=== PATIENT | female | born 1945 | race Caucasian/White ===

== ENCOUNTER 2017-11-14 14:30 | Outpatient (RCR) | payer MEDICARE, OTHER, SELFPAY ==
--- NOTE | 2017-11-07 15:57 | NT_ITS ---
NON TREATMENT NOTE; 11/07/17 Patient was a no show no call for today's scheduled appointment.
--- NOTE | 2017-11-14 15:53 | PTTR_ITS ---
DATE: 11/14/17 SUBJECTIVE: I am doing okay for the most part. OBJECTIVE: Manual therapy: ([id number]): Patient was placed in supine and mobilized with gentle long axis traction through the lower extremity for decompression. She was then stretched through the hamstrings and piriformis with active isolated stretching technique. From sidelying patient was mobilized through hip extension coordinated with knee flexion. Then the knee was placed in 45 degrees of flexion while IASTM was applied through the distal hamstrings, lateral thigh distally, for down regulation via long brush strokes. Patient was then mobilized through the LCL with soft feathering technique with cross grain approach and over the lateral retinaculum of the patellar femoral joint. Patient tolerated treatment well with mobilization occurring bilaterally. Direct treatment time: 40 minutes of direct patient care.
== END 2017-11-22 23:59 | disposition home or self-care (01) ==
LOC: PT 14:30
PROVIDERS: PCP Family Medicine; Referring Provider Nurse Practitioner; Visit Provider Nurse Practitioner
DX: Z47.1 Aftercare following joint replacement surgery (principal); Z96.653 Presence of artificial knee joint, bilateral
CPT/HCPCS: 97140

== ENCOUNTER 2018-02-27 02:44 | Outpatient (CLI) | payer MEDICARE, OTHER, SELFPAY ==
[2018-02-27 10:30] LABS: Cholesterol 231 mg/dL (50-200); HDL Cholesterol 46 mg/dL (40-60); LDL CHOLESTEROL 149 mg/dL (<100); Triglyceride 192 mg/dL (30-150)
== END 2018-02-27 03:04 ==
PROVIDERS: PCP Family Medicine; Visit Provider Family Medicine
DX: E78.5 Hyperlipidemia, unspecified (principal)
CPT/HCPCS: 80048; 80061; 83721

== ENCOUNTER → 2018-10-15 10:18 | Outpatient (BNVA) | payer MEDICARE, OTHER, SELFPAY | PROVIDERS: PCP Family Medicine; Referring Provider Family Medicine; Visit Provider Student in an Organized Health Care Education/Training Program | DX: G56.03 Carpal tunnel syndrome, bilateral upper limbs (principal); M25.541 Pain in joints of right hand; I10 Essential (primary) hypertension | CPT/HCPCS: 99203; 99214 ==

== ENCOUNTER 2018-10-22 01:01 | Outpatient (CLI) | payer MEDICARE, OTHER, SELFPAY ==
--- NOTE | 2018-10-22 10:49 | DI.US_ITS ---
SYMPTOMS/DIAGNOSIS: RIGHT GROIN PAIN, R22.2, PAIN WHILE MOVING/WHEN LIFTING LEG ULTRASOUND EXAMINATION OF THE RIGHT GROIN: There is no evidence of a mass. A 2.2 x 0.8 x 0.5 cm lymph node is identified. The examination is otherwise unremarkable.
== END 2018-10-22 01:21 ==
PROVIDERS: PCP Family Medicine; Visit Provider Internal Medicine
DX: R10.31 Right lower quadrant pain (principal); R59.0 Localized enlarged lymph nodes
CPT/HCPCS: 76882

== ENCOUNTER 2018-12-09 11:03 | Day surgery (SDC) | payer MEDICARE, OTHER, SELFPAY ==
--- NOTE | 2018-12-09 09:54 | W.PM.DSUDISC ---
Documented by User: Consuelo Ron 12/09/18 09:58 Discharge Plan Disposition Patient Disposition: HOME Condition: Good Discharge Details Reason For Visit: Right carpal tunnel syndrome Attending Provider: Bruce Casas Primary Care Provider: Malini Vieira Home Meds and New Rx's Prescriptions: New hydrocodone-acetaminophen 5-325 mg tablet 1 tab PO Q6H PRN (Reason: severe pain) Qty: 3 RF: 0 acetaminophen 500 mg tablet 500 mg PO Q6H PRN (Reason: pain) Qty: 60 RF: 0 Continued lovastatin 10 mg tablet 10 mg PO DAILY Qty: 90 RF: 4 lisinopril 10 mg tablet 10 mg PO DAILY Qty: 90 RF: 4 meloxicam 15 mg tablet 15 mg PO DAILY PRN (Reason: pain) Qty: 90 RF: 3 No Action acetaminophen [Acetaminophen Extra Strength] 500 mg Tablet 500 mg PO Q4H PRNRF: 0 Discharge Instructions Stand Alone Forms: Augusto Milligan Tunnel Release Referrals: Bruce Casas MD [ [facility] STAFF PHYSICIAN] - Activity:: Elevate Remove Dressings/Wound Care:: 72 hours Shower/Bathe:: 72 hours Diet:: As Tolerated Discharge Orders Discharge Orders: Discharge Order (Routine); Ordered 12/09/18 Ordered By: Consuelo Ron DS: Diagnosis Discharge Diagnosis (1) Right carpal tunnel syndrome: Status: Acute Documented by User: Bruce Casas MD 12/09/18 12:10 Discharge Plan Disposition Patient Disposition: HOME Condition: Good Discharge Details Reason For Visit: Right carpal tunnel syndrome Attending Provider: Bruce Casas Primary Care Provider: Malini Vieira Home Meds and New Rx's Prescriptions: New hydrocodone-acetaminophen 5-325 mg tablet 1 tab PO Q6H PRN (Reason: severe pain) Qty: 3 RF: 0 acetaminophen 500 mg tablet 500 mg PO Q6H PRN (Reason: pain) Qty: 60 RF: 0 Continued lovastatin 10 mg tablet 10 mg PO DAILY Qty: 90 RF: 4 lisinopril 10 mg tablet 10 mg PO DAILY Qty: 90 RF: 4 meloxicam 15 mg tablet 15 mg PO DAILY PRN (Reason: pain) Qty: 90 RF: 3 No Action acetaminophen [Acetaminophen Extra Strength] 500 mg Tablet 500 mg PO Q4H PRNRF: 0 Discharge Instructions Stand Alone Forms: Augusto Milligan Tunnel Release Referrals: Bruce Casas MD [ [facility] STAFF PHYSICIAN] - Activity:: Elevate Remove Dressings/Wound Care:: 72 hours Shower/Bathe:: 72 hours Diet:: As Tolerated Discharge Orders Discharge Orders: Discharge Order (Routine); Ordered 12/09/18 Ordered By: Consuelo Ron
[2018-12-09 11:20] VITALS: BP 153/87; PULSE 85; RESP 18; TEMP 36.7; O2SAT 98
[2018-12-09] MEDS: ceFAZolin 2 GM/50 ML BAG IVPB (12:05)
[2018-12-09] MEDS: Lactated Ringers 1,000 ML 80 ML IV (12:06)
[2018-12-09] MEDS: Sodium Bicarbonate 50 MEQ/50 ML VIAL (12:15)
[2018-12-09] MEDS: Lidocaine 1% Multi-Dose 50 ML VIAL (12:15)
[2018-12-09 13:00] VITALS: BP 135/80; PULSE 73; RESP 16; TEMP 36.6; O2SAT 95
[2018-12-09] MEDS: Acetaminophen 500 MG TAB PO (13:09)
[2018-12-09 13:55] VITALS: BP 106/62; PULSE 63; RESP 18; TEMP 36.5; O2SAT 96
[2018-12-09 14:10] VITALS: BP 117/64; PULSE 66; RESP 18; TEMP 36.5; O2SAT 96
[2018-12-09 14:55] VITALS: BP 117/69; PULSE 75; RESP 18; TEMP 36.5; O2SAT 97
[2018-12-09] MEDS: HYDROcodone 5/Acetaminophen 325 TAB PO (14:59)
[2018-12-09] MEDS: Meloxicam 15 MG TAB PO (14:59)
--- NOTE | 2018-12-09 17:14 | W.PM.OP ---
Date of service: 12/09/18 Time of Service: 14:14 Operative Note Operative Note DATE OF PROCEDURE: 12/09/18 PRE-OP DIAGNOSIS: Right carpal tunnel syndrome POST-OP DIAGNOSIS: same PROCEDURE: Right Endoscopic Carpal Tunnel Release SURGEON: Bruce Casas ANESTHESIA: GETRain ESTIMATED BLOOD LOSS: 0 PATHOLOGY: none sent TOURNIQUET TIME: 15 COMPLICATIONS: None Patient was transported to: same day Patient's condition: stable Indications: I have seen Kiah in clinic for symptoms of carpal tunnel syndrome. The numbness, tingling, and pain limited function. Clinical exam findings [with nerve conduction tests ]confirmed the diagnosis of carpal tunnel syndrome. Nonoperative measures such as bracing, time, activity modifications had been tried but disability and pain persisted. I discussed carpal tunnel release with the patient. I reviewed the risks of the procedure to include, but not limited to, bleeding, infection, pain, stiffness, incomplete release, damage to nerves or vessels, persistent numbness, recurrence. Despite these risks, the patient elected to proceed. Findings: There was tightened carpal tunnel. There was notable synovium throughout the carpal tunnel which made initial visualization difficult. This was released successfully with the endoscopic with increased space within the tunnel. The antebrachial fascia was released proximally freeing the median nerve at the wrist. Procedure Description: Kiah was greeted in the preoperative holding area where the correct side was identified and marked. The consent was reviewed with the patient and signed. The history and physical was updated. All questions were answered. Kiah was taken back to the operating room. The patient was placed into the supine position on the operating room table with the right arm on an arm board. A nonsterile tourniquet was placed high onto the arm. All bony prominences were well padded. Prophylactic antibiotics in the form of cefazolin were administered. The right arm was then prepped with Chloraprep and draped in a standard fashion with stockinette and extremity drape. A timeout to confirm correct identity, side and site, procedure, allergies, anesthesia, and medical concerns was performed. The surgical site was marked in the volar wrist creases in line with the radial border of the fourth ray. This area was anesthetized with approximately 6cc of 1% Lidocaine. The limb was then exsanguinated with an Esmarch. The skin was incised with a 15 blade, approximately 1cm. The skin only was cut and the deeper tissue was dissected bluntly with a tenotomy scissor, avoiding passing nerve and venous structures. The fascia was penetrated and opened bluntly. A two-prong skin hook was placed under this proximal fascial edge. A series of hamate finders were used to identify and dilate the carpal tunnel. Synovial elevator was used to free synovial attachments to the underside of the transverse carpal ligament. My thumb was kept in the palm to javan the distal extent of the carpal tunnel and correctly position the hand. The [employer]aire endoscope was inserted without difficulty and without resistance. Excellent visualization showed horizontally running fibers of the transverse carpal ligament (TCL). The distal extent of the TCL was visualized and the end of the scope palpated with the thumb. The blade was elevated and withdrawn from distal to proximal. The TCL was split into two flaps. The endoscope was reinserted to confirm complete release and any remnant ligament was incised. The scope was withdrawn and the proximal aspect of the carpal tunnel was grossly inspected and appeared release with the median nerve visible. The antebrachial fascia at the level of the wrist was then freed from the overlying skin and then the underlying median nerve with blunt dissection. This was transected longitudinally for about 3cm proximal to the wrist incision. The wound was then irrigated with easy flow of irrigant distally and proximally. The incision was closed with a single 4-0 Nylon suture. The wound was dressed with Xeroform, Gauze, Kerlix and Jonnie. The tourniquet was deflated with the initial dressing and held with some pressure. Blood flow returned easily to all digits with capillary refill less than 2 seconds. The patient tolerated the procedure well and was returned to the Same Day Surgery area in a stable condition suffering no known complication.
== END 2018-12-09 15:38 | disposition home or self-care (01) ==
LOC: SUR 11:04
PROVIDERS: PCP Family Medicine; Visit Provider Student in an Organized Health Care Education/Training Program
PROC: 01N54ZZ Release Median Nerve, Percutaneous Endoscopic Approach (ICD-10-PCS; CPT 29848; principal; 2018-12-09 12:30)
DX: G56.01 Carpal tunnel syndrome, right upper limb (principal)
CPT/HCPCS: 29848; J0690; L3650

== ENCOUNTER 2018-12-22 15:17 | Emergency (ER) | payer MEDICARE, OTHER, SELFPAY ==
[2018-12-22 15:25] VITALS: BP 161/81; PULSE 94; RESP 16; TEMP 35.9; O2SAT 98
--- NOTE | 2018-12-22 15:38 | ED.GENADUL_ITS ---
Discharge Plan Disposition Patient Disposition: HOME Condition: Stable Discharge Details Chief Complaint: Cellulitis Clinical Impression: Pain and swelling of left wrist Primary Care Provider: Malini Vieira ED Provider: Dominick Lockett Home Meds and New Rx's Prescriptions: New amoxicillin-pot clavulanate [Augmentin] 875-125 mg tablet 1 tab PO Q12H Qty: 14 RF: 0 Continued lovastatin 10 mg tablet 10 mg PO DAILY Qty: 90 RF: 4 lisinopril 10 mg tablet 10 mg PO DAILY Qty: 90 RF: 4 meloxicam 15 mg tablet 15 mg PO DAILY PRN (Reason: pain) Qty: 90 RF: 3 acetaminophen 500 mg tablet 500 mg PO Q6H PRN (Reason: pain) Qty: 60 RF: 0 acetaminophen [Acetaminophen Extra Strength] 500 mg Tablet 500 mg PO Q4H PRNRF: 0 Discharge Instructions Additional Instructions: if redness develops or you have worsening pain start the antibiotic if not better in a week see your primary care provider if you develop high fevers or redness that spreads up the arm despite the antibiotic return to the emergency department Medical Decision Making 73 yo female who underwent carpal tunnel surgery on the right wrist rescently cmoes in with some discomfort and mild swelling for a day where the IV was placed on medial left wrist. Denies falls or other trauma, no rashes or severe pain. Has full rom of the wrist with normal sensation and pulses. HAs very small 1cm area of mild swelling that is not warm t otouch and not significantly tender. Suspect mild seroma or other benign lesion from the IV likely. I am going to prescribe an abx and advised only to start it if signs of infection develop, and that she should follow up with pcp and return precautions given. No findings on exam to suggest cellulitis or nec fasc. No trauma so do not feel xray sindicated Differential Diagnosis Differential Diagnosis: seroma, hematoma HPI General Mode of arrival: ambulatory . Date/Time Provider Initiated Documentation: 12/22/18 15:22 . Limitations to Documentation: no limitations . Information obtained by: patient . History of Present Illness 73 year old F presents to the emergency department with the chief complaint of left wrist pain, described as mild, Quality is described as aching, and is localized to the left and upper extremity. Patient reports no radiation. Patient started experiencing this day(s) (1) and it has been constant. No relieving factors improve symptom(s), No exacerbating factors reported . Patient did receive the following treatments prior to arrival, none Related Data Home Medications Medication Instructions Recorded Confirmed lovastatin 10 mg tablet 10 mg PO DAILY #90 tab-cap 02/20/18 12/22/18 lisinopril 10 mg tablet 10 mg PO DAILY #90 tab-cap 03/14/18 12/22/18 meloxicam 15 mg tablet 15 mg PO DAILY PRN #90 tab 03/21/18 12/22/18 acetaminophen 500 mg PO Q6H PRN #60 tab 12/09/18 12/22/18 acetaminophen [Acetaminophen Extra 500 mg PO Q4H PRN 12/09/18 12/22/18 Strength] amoxicillin-pot clavulanate 1 tab PO Q12H #14 tab 12/22/18 [Augmentin] Previous Rx's Medication Instructions Recorded lovastatin 10 mg tablet 10 mg PO DAILY #90 tab-cap 02/20/18 lisinopril 10 mg tablet 10 mg PO DAILY #90 tab-cap 03/14/18 meloxicam 15 mg tablet 15 mg PO DAILY PRN #90 tab 03/21/18 acetaminophen 500 mg PO Q6H PRN #60 tab 12/09/18 amoxicillin-pot clavulanate 1 tab PO Q12H #14 tab 12/22/18 [Augmentin] Allergies Allergy/AdvReac Type Severity Reaction Status Date / Time Sulfa (Sulfonamide Allergy Unverified 12/22/18 15:28 Antibiotics) General Stated Complaint: Cellulitis ANYI: 4 Review of Systems Review of Systems ROS Unobtainable: All systems reviewed & are unremarkable except as noted in HPI and below Constitutional Constitutional: Denies chills, Denies fever(s) and Denies weakness Cardiovascular Cardiovascular: Denies dyspnea Respiratory Respiratory: Denies dyspnea Gastrointestinal Gastrointestinal: Denies abdominal pain, Denies nausea and Denies vomiting Musculoskeletal Musculoskeletal: Denies joint swelling Neurologic Neurologic: Denies weakness PFSH Family History Mother , AGE 82 Multiple organ failure Hx of cholecystectomy Dementia Father , AGE 75 No problems noted. Sister , AGE 65 No problems noted. Son No problems noted. Son No problems noted. Son DVT (deep venous thrombosis) FAMILY HISTORY Essential hypertension Hyperlipidemia CAD (coronary artery disease) Social History (Updated 03/14/18 @ 10:20 by Joanna Sneed) Smoking/Tobacco Use Status: Never Second Hand Exposure: No Alcohol Intake: current Alcohol Intake frequency: a few times a week Alcohol type: wine Drug use: Never Substance use type: former substance user and marijuana Details: Alcohol t-1, 1 drink. Duration: 15-30 minutes/day Frequency: 5-6 times per week Vania/Jainism: Congregational Special vania needs: Yes (Do not cremate my body until after 3 days) Do you feel safe at home: Yes Do you feel safe in your relationship?: Yes Exam Const General: no acute distress Orientation: alert HENMT Head: normal to inspection Ears: external ears normal General nose exam: external nose normal Mouth: moist mucous membranes Eyes General: appearance normal, both eyes and all related structures Neck Neck: normal visual inspection Resp Effort & Inspection: normal respiratory effort and able to speak in complete sentences Cardio Rate: regular rate Skin General skin exam: no rashes or lesions noted Neuro General: alert and oriented x3 Extrem General: full ROM and normal capillary refill Psych Mental Status: mental status grossly normal Course Vital Signs Vital signs: Vital Signs Temperature 35.9 C L 12/22/18 15:25 Pulse 94 H 12/22/18 15:25 Respiratory Rate 16 12/22/18 15:25 Blood Pressure 161/81 H 12/22/18 15:25 Pulse Oximetry 98 12/22/18 15:25 Temperature 35.9 C L 12/22/18 15:25 Temperature Source Skin 12/22/18 15:25 Pulse 94 H 12/22/18 15:25 Respiratory Rate 16 12/22/18 15:25 Respiratory Effort Non-Labored 12/22/18 15:25 Blood Pressure 161/81 H 12/22/18 15:25 Blood Pressure Position Sitting 12/22/18 15:25 Pulse Oximetry 98 12/22/18 15:25 Oxygen Delivery Method Room Air 12/22/18 15:25 Oxygen Flow Rate 0 12/22/18 15:25 Pain Level 0 12/22/18 15:25
== END 2018-12-22 15:50 | disposition home or self-care (01) ==
PROVIDERS: Emergency Provider Emergency Medicine; PCP Family Medicine
DX: R22.32 Localized swelling, mass and lump, left upper limb (principal); M25.532 Pain in left wrist; Z98.890 Other specified postprocedural states; I10 Essential (primary) hypertension
CPT/HCPCS: 99283

== ENCOUNTER 2019-03-05 01:27 | Outpatient (CLI) | payer MEDICARE, SELFPAY ==
[2019-03-05 12:08] LABS: Anion Gap 9.7 mmol/L (3-11); BUN 50 mg/dL (7-18); CO2 26.3 mmol/L (21.0-32.0); CREATININE 1.75 mg/dL (0.55-1.02); Calcium 9.4 mg/dL (8.5-10.1); Chloride 103 mmol/L (98-107); Estimated GFR 28.65 (mL/min/1.73m2); Glucose 95 mg/dL (74-106); Potassium 5.2 mmol/L (3.5-5.1); Sodium 139 mmol/L (136-145)
== END 2019-03-05 01:47 ==
PROVIDERS: PCP Family Medicine; Visit Provider Family Medicine
DX: I10 Essential (primary) hypertension (principal)
CPT/HCPCS: 36415; 80048

== ENCOUNTER 2019-03-20 00:29 | Outpatient (CLI) | payer MEDICARE, OTHER, SELFPAY ==
[2019-03-20 10:17] LABS: Abs Immature Grans 0.02 k/cumm (0.0-0.09); Absolute Basophil Count 0.03 k/cumm (0.0-0.2); Absolute Eosinophil Count 0.24 k/cumm (0.0-0.7); Absolute Lymphocyte Count 1.33 k/cumm (1.2-3.4); Absolute Monocyte Count 0.41 k/cumm (0.11-0.7); Absolute Neutrophil Count 3.97 k/cumm (1.2-6.7); Basophils % 0.5; HCT 38.4 % (36.0-46.0); HGB 12.3 g/dL (12.0-15.5); Immature Grans % 0.3; Lymphocytes % 22.2; Mean Corpuscular Hemoglobin 28.4 pg (27.0-33.0); Mean Corpuscular Volume 88.7 fL (80-95); Mean Platelet Volume 9.6 fL (8.0-11.0); Monocytes % 6.8; Neutrophils % 66.2; Platelet Count 221 x1000/uL (130-400); RBC 4.33 m/cumm (4.00-5.20); RBC Distribution Width 14.1 % (11.7-14.6)
[2019-03-20 11:34] LABS: ALT 19 U/L (14-59); AST 13 U/L (15-37); Albumin 3.9 g/dL (3.4-5.0); Alkaline Phosphatase 73 U/L (46-116); Anion Gap 8.1 mmol/L (3-11); BUN 42 mg/dL (7-18); Bilirubin, Total 0.5 mg/dL (0.2-1.0); CO2 25.9 mmol/L (21.0-32.0); CREATININE 1.37 mg/dL (0.55-1.02); Calculated LDL 122 mg/dL; Chloride 105 mmol/L (98-107); Cholesterol 197 mg/dL (<200); Estimated GFR 38.01 (mL/min/1.73m2); Glucose 91 mg/dL (74-106); HDL Cholesterol 61 mg/dL (40-60); Magnesium 2.1 mg/dL (1.8-2.4); Potassium 4.7 mmol/L (3.5-5.1); Sodium 139 mmol/L (136-145); Total Protein 7.1 g/dL (6.4-8.2); Triglyceride 70 mg/dL (<150)
== END 2019-03-20 00:49 ==
PROVIDERS: PCP Family Medicine; Visit Provider Internal Medicine
DX: E78.5 Hyperlipidemia, unspecified (principal); E83.42 Hypomagnesemia; R50.9 Fever, unspecified; N28.9 Disorder of kidney and ureter, unspecified
CPT/HCPCS: 36415; 80053; 80061; 83735; 85025

== ENCOUNTER 2019-07-29 21:00 | Outpatient (REF) | payer MEDICARE, OTHER, SELFPAY ==
[2019-07-29 19:27] LABS: HCT 39.9 % (36.0-46.0); Mean Corp. HGB Concentration 32.6 g/dL (32.0-36.0); Mean Corpuscular Hemoglobin 28.3 pg (27.0-33.0); Mean Corpuscular Volume 86.9 fL (80-95); Mean Platelet Volume 10.5 fL (8.0-11.0); Platelet Count 237 x1000/uL (130-400); RBC 4.59 m/cumm (4.00-5.20); RBC Distribution Width 13.8 % (11.7-14.6); White Blood Cell Count 5.92 k/cumm (4.4-10.8)
[2019-07-29 21:03] LABS: ALT 17 U/L (14-59); AST 13 U/L (15-37); Albumin 3.9 g/dL (3.4-5.0); Alkaline Phosphatase 69 U/L (46-116); Anion Gap 4.4 mmol/L (3-11); BUN 22 mg/dL (7-18); Bilirubin, Total 0.6 mg/dL (0.2-1.0); CO2 32.6 mmol/L (21.0-32.0); CREATININE 1.19 mg/dL (0.55-1.02); Calcium 9.8 mg/dL (8.5-10.1); Chloride 99 mmol/L (98-107); Estimated GFR 44.72 (mL/min/1.73m2); Glucose 99 mg/dL (74-106); Potassium 4.2 mmol/L (3.5-5.1); Sodium 136 mmol/L (136-145); Total Protein 7.1 g/dL (6.4-8.2)
== END 2019-07-29 21:20 ==
LOC: LBN 21:00
PROVIDERS: PCP Family Medicine; Visit Provider Family Medicine
DX: I10 Essential (primary) hypertension (principal); R53.83 Other fatigue
CPT/HCPCS: 80053; 85027

== ENCOUNTER 2019-07-30 08:51 | Outpatient (CLI) | payer MEDICARE, OTHER, SELFPAY | END 2019-07-30 09:11 | PROVIDERS: PCP Family Medicine; Visit Provider Internal Medicine Cardiovascular Disease | DX: Z01.810 Encounter for preprocedural cardiovascular examination (principal); R94.31 Abnormal electrocardiogram [ECG] [EKG]; E78.5 Hyperlipidemia, unspecified; I10 Essential (primary) hypertension | CPT/HCPCS: 99203; 99214; 93005; 93010 ==

== ENCOUNTER 2020-08-31 02:44 | Outpatient (CLI) | payer MEDICARE, OTHER, SELFPAY ==
[2020-08-31 12:40] LABS: ALT 20 U/L (14-59); AST 14 U/L (15-37); Albumin 4.1 g/dL (3.4-5.0); Alkaline Phosphatase 66 U/L (46-116); Anion Gap 6.7 mmol/L (3-11); BUN 26 mg/dL (7-18); Bilirubin, Total 0.6 mg/dL (0.2-1.0); CO2 31.3 mmol/L (21.0-32.0); CREATININE 1.3 mg/dL (0.55-1.02); Calcium 9.5 mg/dL (8.5-10.1); Calculated LDL 149 mg/dL (<100); Chloride 103 mmol/L (98-107); Cholesterol 235 mg/dL (<200); Estimated GFR 40.26 (mL/min/1.73m2); Glucose 96 mg/dL (74-106); HDL Cholesterol 45 mg/dL (40-60); Sodium 141 mmol/L (136-145); Total Protein 7.2 g/dL (6.4-8.2); Triglyceride 208 mg/dL (<150)
== END 2020-08-31 02:45 | disposition home or self-care (01) ==
LOC: LBO 02:44
PROVIDERS: PCP Family Medicine; Visit Provider Family Medicine
DX: I10 Essential (primary) hypertension (principal)
CPT/HCPCS: 36415; 80053; 80061

== ENCOUNTER 2020-09-07 01:13 | Outpatient (CLI) | payer MEDICARE, OTHER, SELFPAY ==
--- NOTE | 2020-09-07 13:00 | DI.MAMMO_ITS ---
Exam(s) MAMMO SCREENING EXAM: MAMMO SCREENING CLINICAL HISTORY: screening,Z12.39. TECHNIQUE: Bilateral full field digital CC and MLO mammographic images were obtained with 3D tomosyn thesis and utilizing computer aided detection (CAD). COMPARISON: Prior mammograms performed 2013. There are no interval mammograms since 2013 nor mammog angel prior to 2013 PACS system. FINDINGS: There are no CAD designations. In the right breast there is a noncalcified 5 millimeter nodule located approximately 9 cm in from th e nipple, slightly medial of center and above the equator, more evident than previous. Possibly donn gn lymph node. No malignant-appearing microcalcification groups in this region or elsewhere in eithe r breast. No new focal findings in the opposite-left breast. There is no significant architectural distortion nor skin thickening-retraction. IMPRESSION: No radiographic evidence of malignancy in left breast. 5 millimeter right breast nodule as described above. Spot compression view and possible ultrasound r ecommended. BI-RADS Category 0 - Assessment Incomplete: Need additional imaging evaluation Breast Density - Category B - Scattered areas of fibroglandular density Breast density Category C or D implies that the patient has dense breast tissue. Dense breast tissue can make it harder to find cancer on a mammogram. Dense breast tissue is also associated with an incr eased risk of breast cancer. This information about the result of the mammogram report was provided to the patient to raise their awareness. Use this report when you speak with the patient about their risks for breast cancer, which includes their family history. At that time, you may recommend additional screening tests (Ultrasoun d or MRI) as these tests may add significant information. A negative radiographic report should not delay biopsy if a dominant or clinically suspicious mass is present. Up to ten percent of cancers are not identified on mammography. A negative report may reinforce clinical impression. Adenosis and dense breasts may obscure an underlying neoplasm. False positive reports average 6 to 10%. Patient will receive a letter notifying them of these results.
--- NOTE | 2020-09-07 13:00 | DI.RAD_ITS ---
Exam(s) XR HAND RT COMPLETE EXAM: XR HAND RT COMPLETE CLINICAL HISTORY: right hand pain/decreased mobility,M79.641. TECHNIQUE: 2D digital imaging was performed. COMPARISON: No exams were available for comparison FINDINGS: No evidence of fracture or dislocation. No erosions. Advanced degenerative changes are noted at the 1st carpometacarpal joint which is the articulation between the thumb metacarpal and trapezium. Guy cification is noted in the triangular fibrocartilage on the medial aspect of the wrist. Also noted o n the lateral view is a sub millimeter calcification in the soft tissues dorsal to the head of the pr oximal phalanx of the 2nd-index finger. No erosions seen at this level. IMPRESSION: DATA REPOSITORY: RADIATION DOSE DELIVERED:
== END 2020-09-07 01:33 ==
PROVIDERS: PCP Family Medicine; Visit Provider Family Medicine
DX: Z12.31 Encounter for screening mammogram for malignant neoplasm of breast (principal); R92.8 Other abnormal and inconclusive findings on diagnostic imaging of breast; M79.641 Pain in right hand; M18.11 Unilateral primary osteoarthritis of first carpometacarpal joint, right hand
CPT/HCPCS: 77063; 77067; 73130

== ENCOUNTER 2020-09-16 04:03 | Outpatient (CLI) | payer MEDICARE, OTHER, SELFPAY ==
--- NOTE | 2020-09-16 13:30 | DI.MAMMO_ITS ---
Exam(s) MAMMO SCREEN CALL BACK UNI EXAM: MAMMO SCREEN CALL BACK UNI CLINICAL HISTORY: F/U MAMMO, RT BREAST NODULE,? LYMPH NODE TECHNIQUE: Spot compression views and tomographic imaging were performed. COMPARISON: 07 September 2020 and 2012 FINDINGS: No suspicious masses or suspicious microcalcifications are seen. No persistent abnormality is seen on the additional views performed. The findings are consistent wit h overlying vessels.. There has been no significant change from prior exams. IMPRESSION: BI-RADS Category 1, Negative Yearly screening mammography is recommended. Breast Density - Category B, scattered fibroglandular densities.
== END 2020-09-16 04:23 ==
PROVIDERS: PCP Family Medicine; Visit Provider Family Medicine
DX: Z12.31 Encounter for screening mammogram for malignant neoplasm of breast (principal); R92.8 Other abnormal and inconclusive findings on diagnostic imaging of breast; N63.10 Unspecified lump in the right breast, unspecified quadrant
CPT/HCPCS: 77063; 77067

== ENCOUNTER 2021-03-03 01:14 | Outpatient (CLI) | payer MEDICARE, OTHER, SELFPAY ==
[2021-03-03 15:12] LABS: Calculated LDL 160 mg/dL (<100); Cholesterol 246 mg/dL (<200); HDL Cholesterol 47 mg/dL (40-60); Triglyceride 199 mg/dL (<150)
== END 2021-03-03 01:15 | disposition home or self-care (01) ==
LOC: LBO 01:14
PROVIDERS: PCP Family Medicine; Visit Provider Family Medicine
DX: I10 Essential (primary) hypertension (principal)
CPT/HCPCS: 36415; 80061

== ENCOUNTER 2021-07-06 02:27 | Outpatient (CLI) | payer MEDICARE, OTHER, SELFPAY | END 2021-07-06 02:28 | disposition home or self-care (01) | LOC: LBO 02:27 | PROVIDERS: PCP Nurse Practitioner Family; Visit Provider Family Medicine ==

== ENCOUNTER 2021-08-11 02:06 | Outpatient (CLI) | payer MEDICARE, OTHER, SELFPAY ==
[2021-08-11 08:56] LABS: HCT 44.1 % (36.0-46.0); HGB 14.4 g/dL (11.2-15.7); MCH 29.3 pg (27.0-33.0); MCHC 32.7 % (32.0-36.0); MCV 90 fL (80-95); MPV 10.1 fL (8.0-11.0); Platelet Count 179 10^3/uL (130-400); RBC 4.91 10^6/uL (3.93-5.22); RDW 13.1 % (11.7-14.6); RDW-SD 42.9 fL; WBC 5.59 10^3/uL (4.4-10.8)
[2021-08-11 10:05] LABS: ALT 20 U/L (14-59); AST 18 U/L (15-37); Alkaline Phosphatase 58 U/L (46-116); Anion Gap 11.5 mmol/L (3-11); BUN 37 mg/dL (7-18); Bilirubin, Total 0.5 mg/dL (0.2-1.0); CO2 28.5 mmol/L (21.0-32.0); CREATININE 1.4 mg/dL (0.55-1.02); Calcium 9.5 mg/dL (8.5-10.1); Calculated LDL 140 mg/dL (<100); Chloride 103 mmol/L (98-107); Cholesterol 219 mg/dL (<200); Estimated GFR 36.86 (mL/min/1.73m2); Glucose 102 mg/dL (74-106); HDL Cholesterol 47 mg/dL (40-60); Potassium 3.8 mmol/L (3.5-5.1); Sodium 143 mmol/L (136-145); Total Protein 7.1 g/dL (6.4-8.2); Triglyceride 160 mg/dL (<150)
== END 2021-08-11 02:07 | disposition home or self-care (01) ==
LOC: LBO 02:06
PROVIDERS: Family Medicine; PCP Student in an Organized Health Care Education/Training Program; Visit Provider Student in an Organized Health Care Education/Training Program
DX: I10 Essential (primary) hypertension (principal); E78.5 Hyperlipidemia, unspecified; G89.29 Other chronic pain; M25.552 Pain in left hip
CPT/HCPCS: 36415; 80053; 80061; 85027

== ENCOUNTER → 2021-08-18 11:28 | Outpatient (BNVA) | payer MEDICARE, OTHER, SELFPAY | PROVIDERS: PCP Student in an Organized Health Care Education/Training Program; Referring Provider Student in an Organized Health Care Education/Training Program; Visit Provider Physical Therapy Assistant | DX: Z48.00 Encounter for change or removal of nonsurgical wound dressing (principal); S80.811A Abrasion, right lower leg, initial encounter; X58.XXXA Exposure to other specified factors, initial encounter | CPT/HCPCS: 99213 ==

== ENCOUNTER → 2021-08-22 13:57 | Outpatient (BNVA) | payer MEDICARE, OTHER, SELFPAY | PROVIDERS: PCP Student in an Organized Health Care Education/Training Program; Referring Provider Student in an Organized Health Care Education/Training Program; Visit Provider Physical Therapy Assistant | DX: Z51.89 Encounter for other specified aftercare (principal); S80.811A Abrasion, right lower leg, initial encounter; X58.XXXA Exposure to other specified factors, initial encounter | CPT/HCPCS: 99213 ==

== ENCOUNTER → 2021-08-28 14:02 | Outpatient (BNVA) | payer MEDICARE, OTHER, SELFPAY | PROVIDERS: PCP Student in an Organized Health Care Education/Training Program; Referring Provider Student in an Organized Health Care Education/Training Program; Visit Provider Physical Therapy Assistant | DX: S80.811A Abrasion, right lower leg, initial encounter (principal); X58.XXXA Exposure to other specified factors, initial encounter; Z51.89 Encounter for other specified aftercare | CPT/HCPCS: 99212 ==

== ENCOUNTER 2021-09-04 04:31 | Outpatient (CLI) | payer MEDICARE, OTHER, SELFPAY ==
[2021-09-04 15:31] LABS: Anion Gap 9.9 mmol/L (3-11); BUN 29 mg/dL (7-18); CO2 29.1 mmol/L (21.0-32.0); CREATININE 1.3 mg/dL (0.55-1.02); Calcium 9.5 mg/dL (8.5-10.1); Chloride 98 mmol/L (98-107); Estimated GFR 40.15 (mL/min/1.73m2); Glucose 110 mg/dL (74-106); Sodium 137 mmol/L (136-145)
[2021-09-05 11:12] LABS: Lyme Ab w Rflx to Lyme Confirm Negative (Negative)
[2021-09-06 14:33] LABS: ANA Interpretation Positive (Negative); ANA Titer Pattern 1:160 Homogeneous
[2021-09-07 00:38] LABS: Anaplasma phagocytophilum Negative (Negative); B. miyamotoi PCR Negative (Negative); Babesia divergens/MO-1 Negative (Negative); Babesia duncani Negative (Negative); Babesia microti Negative (Negative); Ehrlichia chaffeensis Negative (Negative); Ehrlichia ewingii/canis Negative (Negative); Ehrlichia muris eauclairensis Negative (Negative)
== END 2021-09-04 04:32 | disposition home or self-care (01) ==
PROVIDERS: PCP Nurse Practitioner; Visit Provider Nurse Practitioner
DX: I10 Essential (primary) hypertension (principal); N18.9 Chronic kidney disease, unspecified; W57.XXXA Bitten or stung by nonvenomous insect and other nonvenomous arthropods, initial encounter; M25.50 Pain in unspecified joint; R76.8 Other specified abnormal immunological findings in serum; T14.8XXA Other injury of unspecified body region, initial encounter
CPT/HCPCS: 36415; 80048; 87798; 86038; 86618

== ENCOUNTER → 2021-09-08 13:30 | Outpatient (BNVA) | payer MEDICARE, OTHER, SELFPAY | PROVIDERS: PCP Nurse Practitioner; Referring Provider Nurse Practitioner; Visit Provider Physical Therapy Assistant | DX: S80.811D Abrasion, right lower leg, subsequent encounter (principal); X58.XXXD Exposure to other specified factors, subsequent encounter | CPT/HCPCS: 99213 ==

== ENCOUNTER 2021-09-14 03:14 | Outpatient (CLI) | payer MEDICARE, OTHER, SELFPAY ==
[2021-09-14 13:54] LABS: BUN 25 mg/dL (7-18); CREATININE 1.2 mg/dL (0.55-1.02); Calcium 9.9 mg/dL (8.5-10.1); Chloride 96 mmol/L (98-107); Estimated GFR 44.04 (mL/min/1.73m2); Glucose 103 mg/dL (74-106); Potassium 3.3 mmol/L (3.5-5.1); Sodium 136 mmol/L (136-145)
== END 2021-09-14 03:15 | disposition home or self-care (01) ==
LOC: LBO 03:14
PROVIDERS: PCP Nurse Practitioner; Visit Provider Nurse Practitioner
DX: N18.9 Chronic kidney disease, unspecified (principal); S80.811D Abrasion, right lower leg, subsequent encounter; X58.XXXD Exposure to other specified factors, subsequent encounter
CPT/HCPCS: 36415; 80048; 99212

== ENCOUNTER → 2021-11-14 02:28 | Outpatient (CLI) | payer MEDICARE, OTHER, SELFPAY ==
--- NOTE | 2021-11-14 07:15 | DI.US_ITS ---
Exam(s) US RENAL EXAM: US RENAL CLINICAL HISTORY: low GFR,ABNL KIDNEY FUNCTION, N28.9 TECHNIQUE: Ultrasound performed using standard protocol. COMPARISON: US US soft tiss extremity/groin from 10/22/2018 FINDINGS: Renal ultrasound was performed according to the usual protocol. Kidneys are normal in size and shape . There is no evidence of hydronephrosis. There is an apparent 9 millimeter lower pole right renal calculus. There is a 28 millimeter in diameter simple cyst of the upper pole of the left kidney. No other focal abnormality identified. Urinary bladder has a normal appearance with pre and postvoid bladder volume measurements 78 cc and 0 cc respectively. Ureteral jets were noted bilaterally. IMPRESSION: 9 millimeter right lower pole renal calculus. No other significant findings. No evidence urinary tr act obstruction. DATA REPOSITORY:
--- NOTE | 2021-11-14 12:59 | DI.RAD_ITS ---
Exam(s) XR HIP LT COMPLETE AP PELVIS EXAM: XR HIP LT COMPLETE AP PELVIS CLINICAL HISTORY: LT HIP PAIN, M25.552 TECHNIQUE: COMPARISON: No exams were available for comparison FINDINGS: Three views were obtained. 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 There a re moderate degenerative changes of the lower lumbar spine and both SI joints. There is slight narrowing of the cartilaginous joint space of the left hip superiorly. There are mod erate marginal osteophytes of the acetabulum on the left. The left femoral head appears intact. Min imal spurring of the greater trochanter of the femur noted. IMPRESSION: Mild DJD left hip. RADIATION DOSE DELIVERED: Total DLP
== END ==
PROVIDERS: PCP Nurse Practitioner; Visit Provider Nurse Practitioner
DX: N20.0 Calculus of kidney (principal); G89.29 Other chronic pain; M17.12 Unilateral primary osteoarthritis, left knee
CPT/HCPCS: 76770; 73502

== ENCOUNTER 2021-11-22 10:00 | Outpatient (RCR) | payer MEDICARE, OTHER, SELFPAY ==
--- NOTE | 2021-11-17 10:00 | RT.EKG_ITS ---
APPROVED REPORT Exam: Resting ECG Reason for Exam: Baseline CR program EKG Patient Location: O HR:76 bpm ECG Measurements Heart Rate 76 AXIS OH 185 P 80 QRSd 100 QRS -6 QT 403 T -32 QTc 454 Conclusion Sinus rhythm...normal P axis, V-rate 50- 99 Inferior infarct, age indeterminate...Q>35mS, T neg, II III aVF
== END 2021-11-22 23:59 | disposition home or self-care (01) ==
LOC: CR 10:00
PROVIDERS: PCP Nurse Practitioner; Visit Provider Internal Medicine Cardiovascular Disease
DX: Z51.89 Encounter for other specified aftercare (principal); I25.2 Old myocardial infarction; Z95.1 Presence of aortocoronary bypass graft
CPT/HCPCS: S9472

== ENCOUNTER 2021-12-22 10:18 | Outpatient (RCR) | payer MEDICARE, OTHER, SELFPAY | END 2021-12-22 23:59 | disposition home or self-care (01) | LOC: CR 10:18 | PROVIDERS: PCP Nurse Practitioner; Visit Provider Internal Medicine Cardiovascular Disease | DX: Z51.89 Encounter for other specified aftercare (principal); I25.2 Old myocardial infarction; Z95.1 Presence of aortocoronary bypass graft | CPT/HCPCS: S9472 ==

== ENCOUNTER 2022-01-22 03:09 | Outpatient (CLI) | payer MEDICARE, SELFPAY ==
[2022-01-22 16:42] LABS: ESR 8 mm/hr (0-30)
[2022-01-22 17:55] LABS: Anion Gap 9.8 mmol/L (3-11); BUN 35 mg/dL (7-18); CO2 28.2 mmol/L (21.0-32.0); CREATININE 1.3 mg/dL (0.55-1.02); Calcium 9.9 mg/dL (8.5-10.1); Chloride 100 mmol/L (98-107); Estimated GFR 43.15 (mL/min/1.73m2); Glucose 131 mg/dL (74-106); Potassium 4.3 mmol/L (3.5-5.1); Sodium 138 mmol/L (136-145)
[2022-01-22 18:11] LABS: Bilirubin Negative (Negative); Blood Negative (Negative); Clarity Clear (Clear); Glucose Negative (Negative); Ketones Negative (Negative); Leukocyte Esterase Negative (Negative); Nitrite Negative (Negative); Urobilinogen 0.2 EU/dL (Up TO 0.2)
[2022-01-22 19:15] LABS: C-Reactive Protein < 0.05 mg/dL (0.0-0.3)
[2022-01-23 17:54] LABS: Rheumatoid Factor 10.1 IU/mL (<12.0)
[2022-01-24 09:27] LABS: Cyclic Citrullinated Peptide <2.5 U/mL (<5.0)
[2022-01-25 13:59] LABS: dsDNA Ab, IgG 13.1 IU/mL (<30.0)
[2022-01-25 15:18] LABS: RNP Ab, IgG 10.9 Units (<20.0); SS-A Antibody 2.5 Units (<20.0); Sm (Smith) Ab, IgG 3.6 Units (<20.0)
== END 2022-01-22 03:10 | disposition home or self-care (01) ==
LOC: LBO 03:09
PROVIDERS: Internal Medicine; PCP Nurse Practitioner; Visit Provider Nurse Practitioner
DX: R76.0 Raised antibody titer (principal); G89.29 Other chronic pain
CPT/HCPCS: 36415; 80048; 85652; 86200; 81003; 86140; 86225; 86235; 86431

== ENCOUNTER 2022-01-22 10:00 | Outpatient (RCR) | payer MEDICARE, SELFPAY | END 2022-01-22 23:59 | disposition home or self-care (01) | LOC: CR 10:00 | PROVIDERS: PCP Nurse Practitioner; Visit Provider Internal Medicine Cardiovascular Disease | DX: Z51.89 Encounter for other specified aftercare (principal); I25.2 Old myocardial infarction; Z95.1 Presence of aortocoronary bypass graft | CPT/HCPCS: S9472 ==

== ENCOUNTER 2022-02-14 02:41 | Outpatient (CLI) | payer MEDICARE, SELFPAY ==
[2022-02-14 09:42] LABS: Calculated LDL 136 mg/dL (<100); Cholesterol 216 mg/dL (<200); HDL Cholesterol 49 mg/dL (40-60); Triglyceride 155 mg/dL (<150)
== END 2022-02-14 02:42 | disposition home or self-care (01) ==
LOC: LBO 02:42
PROVIDERS: PCP Nurse Practitioner; Visit Provider Nurse Practitioner
DX: E78.5 Hyperlipidemia, unspecified (principal); I25.2 Old myocardial infarction
CPT/HCPCS: 36415; 80061

== ENCOUNTER 2022-02-19 09:36 | Outpatient (RCR) | payer MEDICARE, SELFPAY | END 2022-02-21 23:59 | disposition home or self-care (01) | LOC: CR 09:36 | PROVIDERS: PCP Nurse Practitioner; Visit Provider Internal Medicine Cardiovascular Disease | DX: I25.2 Old myocardial infarction (principal); Z95.1 Presence of aortocoronary bypass graft; Z51.89 Encounter for other specified aftercare | CPT/HCPCS: S9472 ==

== ENCOUNTER 2022-03-06 11:02 | Outpatient (RCR) | payer SELFPAY ==
[2022-02-27 14:26] VITALS: BP 151/78; PULSE 82
[2022-03-06 11:03] VITALS: BP 175/86; PULSE 80
[2022-03-08 14:07] VITALS: BP 154/85; PULSE 80
== END 2022-03-24 23:59 | disposition home or self-care (01) ==
LOC: CR 11:02
PROVIDERS: PCP Nurse Practitioner; Visit Provider Internal Medicine Cardiovascular Disease
DX: R69 Illness, unspecified (principal)

== ENCOUNTER → 2022-03-09 00:44 | Outpatient (CLI) | payer MEDICARE, SELFPAY ==
--- NOTE | 2022-03-09 06:22 | DI.US_ITS ---
Exam(s) US ABD PELV TRANSVAG NON-OB EXAM: US ABD PELV TRANSVAG NON-OB CLINICAL HISTORY: Right pelvis pain, discomfort,ruq pain, r10.11 TECHNIQUE: Ultrasound of the abdomen and pelvis was performed both transabdominal and transvaginal. COMPARISON: US US RENAL from 11/14/2021 FINDINGS: ABDOMEN: There is no ascites evident. LIVER: There are no hepatic lesions evident nor obvious dilatation of intrahepatic ducts. GALLBLADDER/BILIARY: Cholelithiasis noted. There is a 2.2 cm echogenic gallstone in the gallbladder lumen. Gallbladder does not appear grossly edematous. There is no pericholecystic fluid. The common hepatic duct isnot dilated, measuring 4mm at the level of art hepatis. PANCREAS: There is no evidence of pancreatic mass nor dilatation of the pancreatic duct. SPLEEN: The spleen is not enlarged and there are no intrasplenic lesions evident. KIDNEYS:Kidneys exhibit normal size with no evidence of solid mass, calculus, nor hydronephrosis. The re is a 2.5 cm cyst in left kidney. No solid masses ABDOMINAL AORTA: There is no evidence of abdominal aortic aneurysm. IVC: Normal diameter where visualized. UTERUS: There are multiple uterine fibroids, largest measuring 2.6 x 2.5 cm. Endometrium was not able to be visualized. Ovaries not able to be visualized. No free fluid IMPRESSION: 1. Cholelithiasis. There is a large shadowing 2.2 cm gallstone. No obvious acute cholecystitis. CB D is not dilated. 2. 2.5 cm benign cyst noted in the left kidney. 3. Total uterine fibroids. Ovaries and endometrium thickness not able to be assessed. 4. There is no ascites. DATA REPOSITORY:
== END ==
PROVIDERS: PCP Nurse Practitioner; Visit Provider Nurse Practitioner
DX: R10.2 Pelvic and perineal pain (principal); K80.20 Calculus of gallbladder without cholecystitis without obstruction; D25.9 Leiomyoma of uterus, unspecified
CPT/HCPCS: 76700; 76830; 76856

== ENCOUNTER 2022-08-21 14:06 | Outpatient (RCR) | payer SELFPAY ==
[2022-07-24 14:42] VITALS: BP 175/90; PULSE 76
[2022-07-26 14:10] VITALS: BP 179/90; PULSE 74
[2022-07-31 14:39] VITALS: BP 142/79; PULSE 83
[2022-08-02 14:20] VITALS: BP 131/67; PULSE 79
[2022-08-07 14:28] VITALS: BP 138/80; PULSE 81
[2022-08-09 14:47] VITALS: BP 171/82; PULSE 79
[2022-08-16 14:09] VITALS: BP 177/87; PULSE 67
[2022-08-21 14:10] VITALS: BP 153/87; PULSE 74
== END 2022-08-22 23:59 | disposition home or self-care (01) ==
LOC: CR 14:06
PROVIDERS: PCP Nurse Practitioner; Visit Provider Internal Medicine Cardiovascular Disease

== ENCOUNTER 2022-09-20 14:08 | Outpatient (RCR) | payer SELFPAY ==
[2022-08-23 00:02] VITALS: BP 153/87; PULSE 74
[2022-08-23 14:24] VITALS: BP 137/79; PULSE 84
[2022-08-28 14:22] VITALS: BP 154/78; PULSE 81
[2022-08-30 14:28] VITALS: BP 156/81; PULSE 79
[2022-09-06 14:16] VITALS: BP 153/79; PULSE 79
[2022-09-13 14:51] VITALS: BP 153/77; PULSE 74
[2022-09-18 14:12] VITALS: BP 133/78; PULSE 76
== END 2022-09-21 23:59 | disposition home or self-care (01) ==
LOC: CR 14:08
PROVIDERS: PCP Nurse Practitioner; Visit Provider Internal Medicine Cardiovascular Disease
DX: R69 Illness, unspecified (principal)

== ENCOUNTER 2022-10-16 14:06 | Outpatient (RCR) | payer SELFPAY ==
[2022-09-22 00:02] VITALS: BP 133/78; PULSE 76
[2022-09-27 14:13] VITALS: BP 157/88; PULSE 84
[2022-10-02 14:18] VITALS: BP 148/78; PULSE 86
[2022-10-04 14:22] VITALS: BP 179/95; PULSE 92
[2022-10-09 14:06] VITALS: BP 159/90; PULSE 90
[2022-10-16 14:12] VITALS: BP 159/82; PULSE 96
== END 2022-10-22 23:59 | disposition home or self-care (01) ==
LOC: CR 14:06
PROVIDERS: PCP Nurse Practitioner; Visit Provider Internal Medicine Cardiovascular Disease
DX: R69 Illness, unspecified (principal)

== ENCOUNTER 2022-11-15 14:09 | Outpatient (RCR) | payer SELFPAY ==
[2022-10-23 00:02] VITALS: BP 159/82; PULSE 96
[2022-10-23 14:40] VITALS: BP 163/83; PULSE 86
[2022-10-30 15:07] VITALS: BP 160/87; PULSE 89
[2022-11-01 14:58] VITALS: BP 148/78; PULSE 84
[2022-11-08 14:42] VITALS: BP 155/81; PULSE 81
[2022-11-13 14:57] VITALS: BP 147/82; PULSE 76
[2022-11-15 14:19] VITALS: BP 160/85; PULSE 84
== END 2022-11-22 23:59 | disposition home or self-care (01) ==
LOC: CR 14:09
PROVIDERS: PCP Nurse Practitioner; Visit Provider Internal Medicine Cardiovascular Disease
DX: R69 Illness, unspecified (principal)

== ENCOUNTER → 2022-12-10 03:13 | Outpatient (CLI) | payer MEDICARE, SELFPAY ==
--- NOTE | 2022-12-10 08:00 | DI.MAMMO_ITS ---
Exam(s) MAMMO SCREENING EXAM: MAMMO SCREENING CLINICAL HISTORY: screening,z12.39 TECHNIQUE: Mammograms were interpreted according to the usual protocol including computer analysis w [employer] CAD system, tomosynthesis and C-view imaging. COMPARISON: 2012 and 2020 FINDINGS: The breasts are composed of mainly fatty density , Breast Density category A. No suspicious masses or suspicious microcalcifications are seen. No skin thickening or abnormal axillary lymph nodes are seen. There has been no significant change from prior exams. IMPRESSION: BI-RADS Category 1, Negative mammogram Yearly screening mammography is recommended. Breast Density - Category A, fatty density. A negative radiographic report should not delay biopsy if a dominant or clinically suspicious mass is present. Up to ten percent of cancers are not identified on mammography. A negative report may reinforce clinical impression. Adenosis and dense breasts may obscure an underlying neoplasm. False positive reports average 6 to 10%. Patient will receive a letter notifying them of these results.
--- NOTE | 2022-12-10 08:00 | DI.DEXA_ITS ---
Exam(s) XR DEXA BONE DENSITY W/WO CHAPARRO EXAM: XR DEXA BONE DENSITY W/WO CHAPARRO CLINICAL HISTORY: screening for osteoporosis in postmenopausal woman,z78.0 TECHNIQUE: COMPARISON: No exams were available for comparison FINDINGS: Lateral Spine Image: Unremarkable. No compression deformities identified. Left hip: Total T-Score: 1.1 Total Z-Score: 2.9 T- and Z-scores: Within normal limits. Lumbar Spine: Total T-Score: 2.2 Total Z-Score: 4.6 T- and Z-scores: Within normal limits. IMPRESSION: No evidence of osteoporosis.
== END ==
PROVIDERS: PCP Nurse Practitioner; Visit Provider Nurse Practitioner
DX: Z78.0 Asymptomatic menopausal state (principal); Z12.31 Encounter for screening mammogram for malignant neoplasm of breast; Z13.820 Encounter for screening for osteoporosis
CPT/HCPCS: 77063; 77067; 77080

== ENCOUNTER 2022-12-11 03:45 | Outpatient (CLI) | payer MEDICARE, SELFPAY ==
[2022-12-11 13:03] LABS: ALT 21 U/L (14-59); AST 18 U/L (15-37); Albumin 3.8 g/dL (3.4-5.0); Alkaline Phosphatase 85 U/L (46-116); BUN 24 mg/dL (7-18); Bilirubin, Total 0.8 mg/dL (0.2-1.0); CREATININE 1.3 mg/dL (0.55-1.02); Calcium 9.9 mg/dL (8.5-10.1); Calculated LDL 91 mg/dL (<100); Chloride 102 mmol/L (98-107); Cholesterol 170 mg/dL (<200); Estimated GFR 42.88 (mL/min/1.73m2); Glucose 100 mg/dL (74-106); HDL Cholesterol 51 mg/dL (40-60); Potassium 3.6 mmol/L (3.5-5.1); Sodium 139 mmol/L (136-145); TSH (W/Ref FT4) 3.15 uIU/mL (0.36-3.74); Total Protein 7.6 g/dL (6.4-8.2); Triglyceride 142 mg/dL (<150); Vitamin B12 650 pg/mL (193-986)
== END 2022-12-11 03:46 | disposition home or self-care (01) ==
LOC: LOS 03:45
PROVIDERS: PCP Nurse Practitioner; Visit Provider Nurse Practitioner
DX: R41.3 Other amnesia (principal); E78.5 Hyperlipidemia, unspecified; N18.9 Chronic kidney disease, unspecified; Z95.1 Presence of aortocoronary bypass graft
CPT/HCPCS: 36415; 80053; 80061; 82607; 84443

== ENCOUNTER 2022-12-20 14:51 | Outpatient (RCR) | payer SELFPAY ==
[2022-11-23 00:13] VITALS: BP 160/85; PULSE 84
[2022-11-27 14:01] VITALS: BP 157/91; PULSE 85
[2022-11-29 14:24] VITALS: BP 165/84; PULSE 88
[2022-12-04 14:19] VITALS: BP 174/88; PULSE 84
[2022-12-06 14:24] VITALS: BP 153/90; PULSE 87
[2022-12-11 15:29] VITALS: BP 144/79; PULSE 92
[2022-12-18 14:22] VITALS: BP 154/84; PULSE 80
[2022-12-20 14:52] VITALS: BP 174/80; PULSE 85
== END 2022-12-22 23:59 | disposition home or self-care (01) ==
LOC: CR 14:51
PROVIDERS: PCP Nurse Practitioner; Visit Provider Internal Medicine Cardiovascular Disease
DX: R69 Illness, unspecified (principal)

== ENCOUNTER 2023-01-22 14:05 | Outpatient (RCR) | payer SELFPAY ==
[2022-12-23 00:05] VITALS: BP 174/80; PULSE 85
[2022-12-25 14:09] VITALS: BP 152/80; PULSE 85
[2022-12-27 14:13] VITALS: BP 158/88; PULSE 89
[2023-01-01 14:18] VITALS: BP 167/84; PULSE 79
[2023-01-03 14:17] VITALS: BP 145/78; PULSE 88
[2023-01-10 14:50] VITALS: BP 163/82; PULSE 89
[2023-01-17 14:14] VITALS: BP 143/83; PULSE 94
[2023-01-22 14:09] VITALS: BP 117/68; PULSE 86
== END 2023-01-22 23:59 | disposition home or self-care (01) ==
LOC: CR 14:05
PROVIDERS: PCP Nurse Practitioner; Visit Provider Internal Medicine Cardiovascular Disease
DX: R69 Illness, unspecified (principal)

== ENCOUNTER 2023-02-19 14:05 | Outpatient (RCR) | payer SELFPAY ==
[2023-01-23 00:05] VITALS: BP 174/80; PULSE 85
[2023-01-24 14:26] VITALS: BP 147/67; PULSE 92
[2023-01-29 15:20] VITALS: BP 130/76; PULSE 96
[2023-02-07 14:09] VITALS: BP 133/66; PULSE 89
[2023-02-19 14:09] VITALS: BP 121/68; PULSE 70
[2023-02-21 14:11] VITALS: BP 153/72; PULSE 64
== END 2023-02-21 23:59 | disposition home or self-care (01) ==
LOC: CR 14:05
PROVIDERS: PCP Nurse Practitioner; Visit Provider Internal Medicine Cardiovascular Disease
DX: R69 Illness, unspecified (principal)

== ENCOUNTER 2023-03-05 09:45 | Outpatient (REF) | payer MEDICARE, SELFPAY | END 2023-03-05 09:46 | disposition home or self-care (01) | LOC: LBN 09:45 | PROVIDERS: PCP Nurse Practitioner; Visit Provider Nurse Practitioner | DX: R32 Unspecified urinary incontinence (principal) | CPT/HCPCS: 87086 ==

== ENCOUNTER 2023-03-05 14:42 | Outpatient (RCR) | payer SELFPAY ==
[2023-02-22 00:04] VITALS: BP 174/80; PULSE 85
--- OUTSIDE RECORDS SUMMARY | 2023-02-26 14:36 | XMS_ITS | Continuity of Care Document ---
Author Name Unknown Organization [facility] Address [address] [place] [address] Care Team Providers Care Stress Engineer Name Role Phone Eugenia Medley Primary Care Physician Encounter [facility] [id number] Date(s): 02/06/23 - 02/06/23 [facility] [address] [place] [address] Discharge Disposition: Home Allergies, Adverse Reactions, Alerts Substance Reaction Severity Status sulfa drugs Unknown Active Medications acetaminophen 500 mg oral capsule PRN, 0 Refill(s) Start Date: 02/04/23 Status: Ordered amLODIPine 5 mg oral tablet 0 Refill(s) Start Date: 02/06/23 Status: Ordered aspirin 81 mg oral capsule 81 mg = 1 cap, Oral, Daily, do not exceed 48 capsules in 24 hours, # 30 cap, 0 Refill(s) Start Date: 02/04/23 Status: Ordered atorvastatin 80 mg oral tablet 0 Refill(s) Start Date: 02/04/23 Status: Ordered DULoxetine 30 mg oral delayed release capsule 30 mg = 1 cap, Oral, Daily, do not crush or chew, 0 Refill(s) Start Date: 02/04/23 Status: Ordered DULoxetine 60 mg oral delayed release capsule 60 mg = 1 cap, Oral, Daily, do not crush or chew, 0 Refill(s) Start Date: 02/04/23 Status: Ordered losartan 100 mg oral tablet 0 Refill(s) Start Date: 02/06/23 Status: Ordered Problem List Condition Confirmation Course Effective Dates Status Health Status Informant Arteriosclerotic cardiovascular disease Confirmed Active CKD (chronic kidney disease) Confirmed Active Other chronic pain Confirmed Active Abnormal electrocardiogram Confirmed Active Essential hypertension Confirmed Active History of tobacco use Confirmed Active Hand pain Confirmed Active Chronic left hip pain Confirmed Active History of ST elevation myocardial infarction Confirmed Active S/P CABG x 4 Confirmed Active Hyperlipemia Confirmed Active Lichen planopilaris Confirmed Active Non-healing wound of right lower extremity Confirmed Active Antinuclear antibody (GLENN) titer greater than 1:80 Confirmed Active Abdominal discomfort in right lower quadrant Confirmed Active Social History Social History Type Response Tobacco Never tobacco user T obacco Use:. Sex Patient Care team information Care Team Personnel Name: Eugenia Medley NP Position: No Access Member Role: Primary Care Physician Address: Address: [facility] [address] [place], [place] [id number] [place] [address] Care Team Related Persons Name: LISALYLY Address: Home [address], [place] [id number]
[2023-02-26 14:50] VITALS: BP 155/72; PULSE 74
[2023-02-28 14:00] VITALS: BP 138/78; PULSE 77
[2023-03-05 14:45] VITALS: BP 156/81; PULSE 89
== END 2023-03-24 23:59 | disposition home or self-care (01) ==
LOC: CR 14:42
PROVIDERS: PCP Nurse Practitioner; Visit Provider Internal Medicine Cardiovascular Disease
DX: R69 Illness, unspecified (principal)

== ENCOUNTER 2023-08-22 15:24 | Outpatient (RCR) | payer SELFPAY ==
[2023-08-01 14:39] VITALS: BP 117/64; PULSE 90
[2023-08-06 15:00] VITALS: BP 118/68; PULSE 65
[2023-08-08 14:50] VITALS: BP 110/68; PULSE 90
[2023-08-14 10:10] VITALS: BP 117/70; PULSE 87
[2023-08-15 14:35] VITALS: BP 118/72; PULSE 84
[2023-08-20 14:42] VITALS: BP 138/76; PULSE 90
[2023-08-22 15:28] VITALS: BP 120/71; PULSE 94
== END 2023-08-23 23:59 | disposition home or self-care (01) ==
LOC: CR 15:24
PROVIDERS: PCP Nurse Practitioner; Visit Provider Internal Medicine Cardiovascular Disease
DX: R69 Illness, unspecified (principal)

== ENCOUNTER 2023-09-19 14:50 | Outpatient (RCR) | payer SELFPAY ==
[2023-08-29 14:15] VITALS: BP 132/71; PULSE 88
[2023-09-03 14:36] VITALS: BP 144/84; PULSE 80
[2023-09-05 15:24] VITALS: BP 135/72; PULSE 84
[2023-09-17 14:19] VITALS: BP 120/68; PULSE 84
[2023-09-19 14:51] VITALS: BP 126/72; PULSE 87
== END 2023-09-22 23:59 | disposition home or self-care (01) ==
LOC: CR 14:50
PROVIDERS: PCP Nurse Practitioner; Visit Provider Internal Medicine Cardiovascular Disease
DX: R69 Illness, unspecified (principal)

== ENCOUNTER 2023-10-17 14:11 | Outpatient (RCR) | payer SELFPAY ==
[2023-09-24 14:41] VITALS: BP 127/74; PULSE 98
[2023-10-01 14:10] VITALS: BP 124/71; PULSE 97; O2SAT 91
[2023-10-10 14:19] VITALS: BP 130/75; PULSE 92
[2023-10-15 14:13] VITALS: BP 155/82; PULSE 72
[2023-10-17 16:00] VITALS: BP 148/82; PULSE 82
== END 2023-10-23 23:59 | disposition home or self-care (01) ==
LOC: CR 14:11
PROVIDERS: PCP Nurse Practitioner; Visit Provider Internal Medicine Cardiovascular Disease
DX: R69 Illness, unspecified (principal)

== ENCOUNTER 2023-11-21 14:25 | Outpatient (RCR) | payer SELFPAY ==
[2023-10-24 00:19] VITALS: BP 148/82; PULSE 82
[2023-10-29 14:16] VITALS: BP 153/84; PULSE 81
[2023-10-31 14:32] VITALS: BP 135/72; PULSE 89
[2023-11-05 13:59] VITALS: BP 149/80; PULSE 83
[2023-11-07 14:25] VITALS: BP 139/75; PULSE 81
[2023-11-12 14:18] VITALS: BP 140/75; PULSE 89
[2023-11-19 14:19] VITALS: BP 149/79; PULSE 74
[2023-11-21 14:29] VITALS: BP 144/76; PULSE 86
== END 2023-11-23 23:59 | disposition home or self-care (01) ==
LOC: CR 14:25
PROVIDERS: PCP Nurse Practitioner; Visit Provider Internal Medicine Cardiovascular Disease
DX: R69 Illness, unspecified (principal)

== ENCOUNTER 2023-12-12 14:18 | Outpatient (RCR) | payer SELFPAY ==
[2023-11-24 00:26] VITALS: BP 148/82; PULSE 82
[2023-11-26 14:19] VITALS: BP 153/80; PULSE 89
[2023-11-28 14:09] VITALS: BP 130/70; PULSE 65; O2SAT 96
[2023-12-10 14:27] VITALS: BP 147/84; PULSE 92
[2023-12-12 15:09] VITALS: BP 139/72; PULSE 91
== END 2023-12-23 23:59 | disposition home or self-care (01) ==
LOC: CR 14:18
PROVIDERS: PCP Nurse Practitioner; Visit Provider Internal Medicine Cardiovascular Disease
DX: R69 Illness, unspecified (principal)

== ENCOUNTER 2023-12-24 02:14 | Outpatient (CLI) | payer MEDICARE, SELFPAY ==
--- NOTE | 2023-12-24 12:55 | DI.MAMMO_ITS ---
Exam(s) MAMMO SCREENING EXAM: MAMMO SCREENING CLINICAL HISTORY: screening,z12.39 TECHNIQUE: Mammograms were interpreted according to the usual protocol including computer analysis w Verical CAD system, tomosynthesis and C-view imaging. COMPARISON: 2020 and 2022 FINDINGS: The breasts are composed of scattered fibroglandular densities, Breast Density category B. No suspicious masses or suspicious microcalcifications are seen. No skin thickening or abnormal axillary lymph nodes are seen. There has been no significant change from prior exams. IMPRESSION: BI-RADS Category 1, Negative mammogram Yearly screening mammography is recommended. Breast Density - Category B, scattered fibroglandular densities. A negative radiographic report should not delay biopsy if a dominant or clinically suspicious mass is present. Up to ten percent of cancers are not identified on mammography. A negative report may reinforce clinical impression. Adenosis and dense breasts may obscure an underlying neoplasm. False positive reports average 6 to 10%. Patient will receive a letter notifying them of these results.
== END 2023-12-24 02:34 ==
LOC: DI 02:15
PROVIDERS: PCP Nurse Practitioner; Visit Provider Nurse Practitioner
DX: Z12.31 Encounter for screening mammogram for malignant neoplasm of breast (principal)
CPT/HCPCS: 77063; 77067

== ENCOUNTER 2024-01-23 14:09 | Outpatient (RCR) | payer SELFPAY ==
[2023-12-24 15:11] VITALS: BP 130/75; PULSE 71
[2024-01-02 14:14] VITALS: BP 164/89; PULSE 75
[2024-01-09 14:10] VITALS: BP 152/78; PULSE 77; O2SAT 95
[2024-01-14 14:24] VITALS: BP 121/69
[2024-01-16 14:11] VITALS: BP 144/74; PULSE 76; O2SAT 94
[2024-01-23 14:18] VITALS: BP 137/70; PULSE 100
== END 2024-01-23 23:59 | disposition home or self-care (01) ==
LOC: CR 14:09
PROVIDERS: PCP Nurse Practitioner; Visit Provider Internal Medicine Cardiovascular Disease
DX: R69 Illness, unspecified (principal)

== ENCOUNTER 2024-02-13 14:09 | Outpatient (RCR) | payer SELFPAY ==
[2024-01-24 00:16] VITALS: BP 137/70; PULSE 100
[2024-01-28 14:04] VITALS: BP 142/72; PULSE 72
[2024-01-30 14:19] VITALS: BP 135/72; PULSE 69
[2024-02-04 14:20] VITALS: BP 156/78; PULSE 84
[2024-02-06 14:09] VITALS: BP 146/81; PULSE 67
[2024-02-13 14:30] VITALS: BP 150/78; PULSE 78
== END 2024-02-22 23:59 | disposition home or self-care (01) ==
LOC: CR 14:09
PROVIDERS: PCP Nurse Practitioner; Visit Provider Internal Medicine Cardiovascular Disease
DX: R69 Illness, unspecified (principal)

== ENCOUNTER 2024-03-12 14:13 | Outpatient (RCR) | payer SELFPAY ==
[2024-02-23 00:24] VITALS: BP 137/70; PULSE 100
[2024-03-03 14:34] VITALS: BP 148/85; PULSE 74
[2024-03-05 14:14] VITALS: BP 156/79; PULSE 61
[2024-03-10 14:49] VITALS: BP 145/78; PULSE 83
[2024-03-12 14:24] VITALS: BP 153/80; PULSE 77
== END 2024-03-24 23:59 | disposition home or self-care (01) ==
LOC: CR 14:13
PROVIDERS: PCP Nurse Practitioner; Visit Provider Internal Medicine Cardiovascular Disease
DX: R69 Illness, unspecified (principal)

== ENCOUNTER 2024-07-21 15:11 | Outpatient (RCR) | payer SELFPAY ==
[2024-03-25 00:27] VITALS: BP 137/70; PULSE 100
[2024-07-07 14:13] VITALS: BP 131/71; PULSE 69
[2024-07-09 15:33] VITALS: BP 158/81; PULSE 83
[2024-07-14 14:32] VITALS: BP 142/75; PULSE 71
[2024-07-21 15:15] VITALS: BP 132/71; PULSE 82
== END 2024-07-22 23:59 | disposition home or self-care (01) ==
LOC: CR 15:11
PROVIDERS: PCP Nurse Practitioner; Visit Provider Internal Medicine Cardiovascular Disease
DX: R69 Illness, unspecified (principal)

== ENCOUNTER 2024-08-11 14:18 | Outpatient (RCR) | payer SELFPAY ==
[2024-07-23 00:12] VITALS: BP 137/70; PULSE 100
[2024-07-23 14:27] VITALS: BP 155/83; PULSE 86
[2024-07-28 15:33] VITALS: BP 154/83; PULSE 73
[2024-07-30 14:29] VITALS: BP 117/74; PULSE 88
[2024-08-04 14:33] VITALS: BP 130/68; PULSE 83
[2024-08-11 14:22] VITALS: BP 140/79; PULSE 74
== END 2024-08-22 23:59 | disposition home or self-care (01) ==
LOC: CR 14:18
PROVIDERS: PCP Nurse Practitioner; Visit Provider Internal Medicine Cardiovascular Disease
DX: R69 Illness, unspecified (principal)

== ENCOUNTER 2024-09-15 10:06 | Outpatient (CLI) | payer MEDICARE, SELFPAY ==
--- NOTE | 2024-09-15 10:00 | RT.EKG_ITS ---
APPROVED REPORT Exam: Resting ECG Reason for Exam: Pre Op Exam Patient Location: O HR:81 bpm ECG Measurements Heart Rate 81 AXIS IL 171 P 32 QRSd 100 QRS 62 QT 392 T 21 QTc 455 Conclusion Sinus rhythm...normal P axis, V-rate 50- 99 Multiple ventricular premature complexes...V complexes w/ short R-R intervls Otherwise normal ECG
== END 2024-09-15 10:07 | disposition home or self-care (01) ==
LOC: DI.KIM 10:08
PROVIDERS: PCP Nurse Practitioner; Visit Provider Family Medicine
DX: I10 Essential (primary) hypertension (principal)
CPT/HCPCS: 93010

== ENCOUNTER 2024-09-17 14:00 | Outpatient (RCR) | payer SELFPAY ==
[2024-08-23 00:21] VITALS: BP 137/70; PULSE 100
[2024-08-25 14:35] VITALS: BP 129/72; PULSE 84
[2024-08-27 14:13] VITALS: BP 128/67; PULSE 91
[2024-09-03 14:29] VITALS: BP 147/85; PULSE 84
[2024-09-08 14:55] VITALS: BP 155/78; PULSE 80
[2024-09-17 14:00] VITALS: BP 132/73; PULSE 80
== END 2024-09-21 23:59 | disposition home or self-care (01) ==
LOC: CR 14:00
PROVIDERS: PCP Nurse Practitioner; Visit Provider Internal Medicine Cardiovascular Disease
DX: R69 Illness, unspecified (principal)

== ENCOUNTER 2024-10-02 06:11 | Day surgery (SDC) | payer MEDICARE, SELFPAY ==
[2024-10-02 06:27] VITALS: BP 130/81; PULSE 87; RESP 16; TEMP 37.2; O2SAT 97
[2024-10-02] MEDS: Tropicam./Phenyleph. (1/2.5%) 5 ML BTL OD ×3 (06:41→06:52)
--- NOTE | 2024-10-02 07:05 | W.ANESPRE ---
General Info Date of Service Date Performed: 10/02/24 Height: 5 ft 9 in Weight: 90.9 kg Body Mass Index (BMI): 29.5 Surgical Procedure: Operation Date: 10/02/24 07:40 Proposed Procedure Side Surgeon p Cataract Extraction with IOL Implant Right Marko Ferrer MD Pre-Op Diagnosis Post-Op Diagnosis Right Cataract Meds Allergies and Home Medications Allergies Allergy/AdvReac Type Severity Reaction Status Date / Time Sulfa (Sulfonamide Allergy Intermediate labored Verified 10/02/24 06:35 Antibiotics) breathing, tight feeling lungs Home Medication ?Medication ?Instructions ?Recorded aspirin 81 mg tablet 81 mg PO DAILY 12/18/21 losartan 100 mg tablet 100 mg PO DAILY 12/13/22 amlodipine 5 mg PO DAILY 01/16/23 clobetasol 0.05 % shampoo 1 applic topical .2-3x/week #118 mL 03/27/23 atorvastatin 80 mg tablet See Rx Instructions .Route 08/12/23 .COMPLEX #90 tabs fluocinonide 0.05 % topical 1 applic topical BID PRN 09/23/23 solution fluorouracil 5 % topical cream 1 applic topical BID 09/23/23 (Efudex) olopatadine 0.7 % eye drops 1 drp ophthalmic (eye) DAILY 30 10/16/23 days #5 mL duloxetine 30 mg capsule,delayed 30 mg PO DAILY #90 caps 04/20/24 release duloxetine 60 mg capsule,delayed 60 mg PO DAILY #90 caps 04/20/24 release Current Visit Medications: Current Medications Generic Name Dose Route Start Last Admin Trade Name Freq PRN Reason Stop Dose Admin Acetaminophen 1,000 mg 10/02/24 06:00 Acetaminophen 500 Mg Tab PO 11/01/24 05:59 Q4H PRN PRN Balanced Salt Solution 500 ml 10/02/24 06:00 Balanced Salt Soln.-Plus 500 Ml Bag OP 11/01/24 05:59 DIRECTED DOUG Miscellaneous Medication 0 ml 10/02/24 06:00 Prednisolone 1%, Moxifloxacin 0.5%, Bromfenac 0.09% 5.6ml Btl OD 11/01/24 05:59 DIRECTED DOUG Miscellaneous Medication 0 ml 10/02/24 06:00 10/02/24 06:52 Tropicam./Phenyleph. (1/2.5%) 5 Ml Btl OD 11/01/24 05:59 1 drp DIRECTED DOUG Administration Tetracaine HCl 0 ml 10/02/24 06:00 Tetracaine 0.5% 4 Ml Btl OD 11/01/24 05:59 DIRECTED [facility] PFSH Active Problems Active Problems: Problem Status Onset Code Nuclear age-related cataract, right eye Acute H25.11 Chronic kidney disease (CKD) stage G3b/A1, moderately decreased glomerular filtration rate (GFR) between 30-44 mL/min/1.73 square meter and albuminuria creatinine ratio less than 30 mg/g Acute N18.32 Neoplasm of unspecified behavior of bone, soft tissue, and skin Acute D49.2 Tendinitis of left hip flexor Acute ~03/2024 M76.892 Osteoarthritis of left hip Acute ~03/2024 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 K13.21 Chronic sinusitis Acute J32.9 Viral conjunctivitis of both eyes Acute 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 L66.1 Abdominal discomfort in right lower quadrant Acute R10.31 Other chronic pain Acute ~02/2022 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) Acute I25.10 Antinuclear antibody (GLENN) titer greater than 1:80 Acute ~12/2021 R76.0 S/P CABG x [address] elevation myocardial infarction (STEMI) Acute I25.2 Non-healing wound of right lower extremity Acute S81.801A S/P CABG x 4 Acute Z95.1 Laceration Acute Chronic left hip pain Acute M25.552, G89.29 Hand pain Acute M79.643 Abnormal electrocardiogram [ECG] [EKG] Acute R94.31 CKD (chronic kidney disease) Acute N18.9 Hyperlipemia Chronic E78.5 History of tobacco use Acute Z87.891 Essential hypertension Chronic 12/05/16 I10 Medical History Medical History Basal cell carcinoma (BCC) of left cheek (~07/2024) 08/18/24 Mohs procedure at Actinic keratitis (~06/2022) 07/11/22 Several areas on face - LN treatment at this visit 12/31/23 f/u with Derm 07/13/24 F/u [facility] Viral wart, unspecified 07/11/22 [facility] , LN to area on scalp H/O squamous cell carcinoma H/O melanoma in situ 07/11/22 [facility] 07/13/24 F/U [facility] Derm ST elevation (STEMI) myocardial infarction of unspecified site (09/2021) F/U with cardiology last seen 04/02/24 Right shoulder pain Colonic polyp (08/06/08) hyperplastic HTN (hypertension) Surgical History Surgical History History of carpal tunnel surgery (~2018) right Status post right hip replacement (~2019) Replacement of total knee joint (~2016) B/L Colonoscopy - MAC (09/16/17) Tobacco Smoking/Tobacco Use Status: Former Tobacco Use Passive smoking exposure: No Second hand exposure: No Alcohol Alcohol Intake: current Alcohol intake frequency: holidays/special occasions only Alcohol type: wine Substance Use Substance use: Never Substance use type: former substance user and marijuana Prental History History 3 Para 3 Hx # Term Pregnancies 3 Multiple births Hx # Pregnancies Ectopic pregnancies AB induced Hx Number of Living Children 3 AB spontaneous Vital Signs and Lab Results Vital Signs Most Recent Vital Signs in EMR: Most Recent Vital Signs Temp Pulse Resp BP Pulse Ox 37.2 C 87 16 130/81 97 10/02/24 06:27 10/02/24 06:27 10/02/24 06:27 10/02/24 06:27 10/02/24 06:27 Imaging and Studies Imaging and Studies Study information below may be from another EMR and interpreted by another provider. Please see original notes in EMR for more complete details. EKG Summary: 09/15/24: Exam: Resting ECG Reason for Exam: Pre Op Exam Patient Location: O HR:81 bpm ECG Measurements Heart Rate 81 AXIS PA 171 P 32 QRSd 100 QRS 62 QT 392 T21 QTc 455 Conclusion Sinus rhythm...normal P axis, V-rate 50- 99 Multiple ventricular premature complexes...V complexes w/ short R-R intervls Otherwise normal ECG Anesthesia Assessment and Plan Anesthesia History Personal History: No History of Anesthesia Complications Family History: No Family History of Anesthesia Complications Exercise Tolerance Exercise Tolerance: Metabolic Equivalents>4 Pertinent Negatives Pertinent Negatives: No Symptoms of GERD Cardiac & Pulmonary Exam Cardiac Exam: Normal S1/S2 Heart Sounds Pulmonary Exam: Clear Bilateral Breath Sounds Implantable Cardiac Device Does patient have a Pacemaker or an ICD?: No Airway Exam Known Difficult Airway: No Mallampati Class: 1 Mouth Opening: Normal (> 3cm) Thyromental Distance: Greater than 3 cm Neck Range of Motion: Full ROM Neck Circumference: Normal Teeth Condition: Normal Dentition ASA Classification ASA Score: ASA 3 Emergency Case?: No NPO Status NPO Status: NPO Clears >2 hours, Solids >8 hours Anesthesia Plan Resuscitation Status: Full Code Anesthesia Technique: MAC Anesthesia Airway Planned: Natural Airway Monitors Used: Standard Monitors Preoperative Comments:: CABG x4, no chest pain. Denies GERD. Desires MKO.
[2024-10-02 07:08] VITALS: BMI 29.5
[2024-10-02] MEDS: Duovisc Viscoelastic System EACH 1 EACH (07:42)
[2024-10-02] MEDS: Lidocaine 1% Pres-Free 5 ML VIAL (07:42)
[2024-10-02] MEDS: Moxifloxacin-PF 1 MG/ML VIAL (07:43)
[2024-10-02] MEDS: Phenylephrine/Lidocaine (15/10) MG/ML 1 ML VIAL (07:44)
[2024-10-02] MEDS: Povidone-Iodine Ophth 30 ML BTL (07:44)
[2024-10-02] MEDS: Balanced Salt Soln.-PLUS 500 ML BAG OP (07:45)
[2024-10-02] MEDS: Prednisolone 1%, Moxifloxacin 0.5%, Bromfenac 0.09% 5.6ML BTL OD (07:45)
[2024-10-02] MEDS: Tetracaine 0.5% 4 ML BTL OD (07:46)
[2024-10-02 07:56] VITALS: BP 98/79; PULSE 80; RESP 16; TEMP 36.2; O2SAT 94
--- NOTE | 2024-10-02 07:58 | W.PM.DSUDISC ---
Date of service: 10/02/24 Discharge Plan Disposition Patient Disposition: Home Discharge Details Attending Provider: Marko Ferrer Primary Care Provider: Eugenia Medley Home Meds and New Rx's Prescriptions: No Action amlodipine [Norvasc] 5 mg PO DAILY atorvastatin 80 mg tablet See Rx Instructions .ROUTE .COMPLEX Qty: 90 3RF Dose Instruction: TAKE ONE TABLET BY MOUTH AT BEDTIME Rx Instructions: TAKE ONE TABLET BY MOUTH AT BEDTIME olopatadine 0.7 % drops 1 drp ophthalmic (eye) DAILY 30 Days Qty: 5 6RF Rx Instructions: OU losartan 100 mg tablet 100 mg PO DAILY aspirin 81 mg tablet 81 mg PO DAILY clobetasol 0.05 % shampoo 1 applic topical .2-3x/week Qty: 118 3RF fluocinonide 0.05 % solution 1 applic topical BID PRN fluorouracil [Efudex] 5 % cream 1 applic topical BID Rx Instructions: to face as directed duloxetine 30 mg capsule,delayed release(DR/EC) 30 mg PO DAILY Qty: 90 3RF Rx Instructions: Take in addition to the 60mg cap for a total daily dose of 90mg. duloxetine 60 mg capsule,delayed release(DR/EC) 60 mg PO DAILY Qty: 90 3RF Discharge Instructions Stand Alone Forms: DSU Post-Op CataractIrasema (DSU) Discharge Orders Discharge Orders: Discharge Order (Routine); Ordered 10/02/24 Ordered By: Marko Ferrer DS: Diagnosis Discharge Diagnosis (1) Nuclear age-related cataract, right eye: Status: Resolved
--- NOTE | 2024-10-02 07:58 | W.PM.OP ---
Operative Note Operative Note PRE-OP DIAGNOSIS: Nuclear cataract, right eye POST-OP DIAGNOSIS: same PROCEDURE: Cataract extraction using phacoemulsification with intraocular lens implant, right eye SURGEON: Marko Ferrer ANESTHESIA TYPE: Local By Surgeon and MAC Refer to Anesthesia Record ESTIMATED BLOOD LOSS: 0 PATHOLOGY: none sent COMPLICATIONS: None Patient was transported to: same day Patient's condition: stable Implants: Mango Clareon [id number] Indications: Progressive decreased vision due to cataract, right eye Procedure Description: CATARACT SURGERY OPERATIVE REPORT PREOPERATIVE DIAGNOSIS: Nuclear cataract, right eye POSTOPERATIVE DIAGNOSIS: Same OPERATION: Cataract extraction using phacoemulsification with posterior chamber intraocular lens implant, right eye. IOL: IOL Laborer Driver/Model: Mango Clareon [id number] IOL Power: + 18.0 diopters IOL Serial Number: [id number] Optic Diameter: 6.0mm Haptic/Overall Diameter: 13.0mm PHACO INFO: Mango Centurion Vision System with OZil and Active Fluidics Cumulative Dispersed Energy (CDE): 9.39 seconds SURGEON: Marko Ferrer MD, KHADRA ANESTHESIA: Monitored Anesthesia Care (MAC), with local sub-tenon's anesthetic infiltration COMPLICATIONS: None SPECIMENS: None INDICATIONS FOR PROCEDURE: The patient is a 78-year-old lady with history of diminished visual acuity in her right eye secondary to the development of nuclear cataract. She is a history of moderate myopia and reads without glasses. She is significantly symptomatic that she desires cataract surgery to attempt to improve and maximize her vision. She desires to remain myopic postoperatively, postoperative refractive target is -3.0 diopters. See office notes for detailed information. PROCEDURE: The correct surgical eye was identified and marked as the right eye and the pupil was dilated in the preoperative area using mydriatics and cycloplegics. The dilated pupil size was 7.0 mm. Oral sedation was administered in the form of an Imprimis MKO Melt (midazolam 3mg/ketamine 25mg/ondansetron 2mg). The patient elected to proceed without oral sedation. The patient was brought to the operating room where cardiopulmonary monitoring was instituted and surgical time-out was performed, confirming the correct operative eye and IOL power. Topical anesthesia was administered and ophthalmic povidone-iodine 5% was instilled into the conjunctival fornices. The sho-ocular area was prepped with Betadine 10% solution and draped in the usual sterile fashion for intraocular surgery, including an aperture drape. A Tegaderm transparent film dressing was cut in half and used to cover the lashes and lid margins. Care was taken to sequester the lashes and lid margins under the Tegaderm dressing. A lid speculum was placed between the lids of the operative eye and the Mango LuxOR Revalia operating microscope was maneuvered into position. Zoya scissors were then used to make a conjunctival buttonhole approximately 6mm posterior to the limbus in the inferonasal quadrant. Blunt dissection was carried out to expose bare sclera, and a blunt-tipped sub-tenon?s anesthesia cannula was introduced and passed posteriorly along the globe where non-preserved plain lidocaine was injected into posterior sub-Tenon?s space. A sideport knife was used to make a paracentesis port. Intraocular phenylephrine/lidocaine was injected into the anterior chamber. The anterior chamber was then filled with viscoelastic. A keratome knife was used to construct a two--plane clear corneal tunnel extending 2.0mm into clear cornea. A flap was raised on the anterior capsule and capsulorhexis forceps were used to complete a continuous curvilinear capsulorhexis of 5.0 mm. Balanced salt solution was then used to perform cortical cleaving hydrodissection and nuclear hydrodelineation until the lens could be freely rotated within the capsular bag. The lens nucleus was then disassembled and removed within the capsular bag and iris plane using phacoemulsification. Residual cortical material was removed using the I/A handpiece. The posterior capsule was carefully polished to remove as much residual lens epithelial cells as safely possible. The capsular bag was then inflated and the anterior chamber deepened with cohesive viscoelastic. The lens implant described above was inserted into the capsular bag using the Mango Autonome Injector. A Kuglen hook was used to dial the IOL into position. Residual viscoelastic was then removed first from posterior to the IOL, then from the anterior chamber using the I/A handpiece. The lens implant was noted to center nicely within the capsular bag. The incisions were stromally hydrated, and the anterior chamber was reformed using BSS. Then 0.5cc of moxifloxacin 1.0mg/ml were injected into the capsular bag and anterior chamber. The incisions were checked with a Weck spear and found to be secure. Several drops of ophthalmic povidone-iodine 5% were then applied to the eye followed by two drops of combination steroid/NSAID/antibiotic solution. The drapes were removed and a clear plastic protective eye shield was placed over the eye. The patient was then returned to Same Day Surgery in stable condition. Date of Procedure: 10/02/24
--- NOTE | 2024-10-02 08:03 | W.ANESPOSTOP ---
Postoperative Evaluation Date, Time and Location Date Performed: 10/02/24 Time Performed: 08:01 Patient Location: Day Surgery Unit Vital Signs Most Recent Imported Vital Signs: Most Recent Vital Signs Temp Pulse Resp BP Pulse Ox 37.2 C 87 16 130/81 97 10/02/24 06:27 10/02/24 06:27 10/02/24 06:27 10/02/24 06:27 10/02/24 06:27 Pain Score Most Recent Pain Score: Most Recent Pain Score Pain Level 0 10/02/24 06:27 Assessment Mental Status: Awake (Alert & Oriented to Patient Baseline) Airway and Respiratory Function: Patent airway with normal (patient baseline) respiratory exam Cardiovascular Function: Hemodynamically Stable Hydration Status: Adequately Hydrated Nausea & Vomiting: No Nausea or Vomiting Pain: Pt. Denies Any Pain Peripheral Nerve Block: Patient did not receive a nerve block
[2024-10-02 08:29] VITALS: BP 117/71; PULSE 77; RESP 16; TEMP 36; O2SAT 97
== END 2024-10-02 08:36 | disposition home or self-care (01) ==
LOC: SUR 06:12
PROVIDERS: PCP Nurse Practitioner; Visit Provider Ophthalmology
PROC: (CPT 66984; principal; 2024-10-02 07:30)
DX: H25.11 Age-related nuclear cataract, right eye (principal)
CPT/HCPCS: 66984; 00123; V2632; J2003

== ENCOUNTER 2024-10-09 10:19 | Day surgery (SDC) | payer MEDICARE, SELFPAY ==
[2024-10-09 10:29] VITALS: BP 154/88; PULSE 75; RESP 18; TEMP 36.6; O2SAT 98
[2024-10-09] MEDS: Tropicam./Phenyleph. (1/2.5%) 5 ML BTL OS ×3 (10:39→10:49)
--- NOTE | 2024-10-09 10:40 | W.ANESPRE ---
General Info Date of Service Date Performed: 10/09/24 Height: 5 ft 9 in Weight: 90.9 kg Body Mass Index (BMI): 29.5 Surgical Procedure: Operation Date: 10/09/24 13:40 Proposed Procedure Side Surgeon p Cataract Extraction with IOL Implant Left Marko Ferrer MD Meds Allergies and Home Medications Allergies Allergy/AdvReac Type Severity Reaction Status Date / Time Sulfa (Sulfonamide Allergy Intermediate labored Verified 10/09/24 10:27 Antibiotics) breathing, tight feeling lungs Home Medication ?Medication ?Instructions ?Recorded aspirin 81 mg tablet 81 mg PO DAILY 12/18/21 losartan 100 mg tablet 100 mg PO DAILY 12/13/22 amlodipine 5 mg PO DAILY 01/16/23 clobetasol 0.05 % shampoo 1 applic topical .2-3x/week #118 mL 03/27/23 atorvastatin 80 mg tablet See Rx Instructions .Route 08/12/23 .COMPLEX #90 tabs fluocinonide 0.05 % topical 1 applic topical BID PRN 09/23/23 solution fluorouracil 5 % topical cream 1 applic topical BID 09/23/23 (Efudex) olopatadine 0.7 % eye drops 1 drp ophthalmic (eye) DAILY 30 10/16/23 days #5 mL duloxetine 30 mg capsule,delayed 30 mg PO DAILY #90 caps 04/20/24 release duloxetine 60 mg capsule,delayed 60 mg PO DAILY #90 caps 04/20/24 release Current Visit Medications: Current Medications Generic Name Dose Route Start Last Admin Trade Name Freq PRN Reason Stop Dose Admin Acetaminophen 1,000 mg 10/09/24 06:00 Acetaminophen 500 Mg Tab PO 11/08/24 05:59 Q4H PRN PRN Balanced Salt Solution 500 ml 10/09/24 06:00 Balanced Salt Soln.-Plus 500 Ml Bag OP 11/08/24 05:59 DIRECTED DOUG Miscellaneous Medication 0 ml 10/09/24 06:00 Prednisolone 1%, Moxifloxacin 0.5%, Bromfenac 0.09% 5.6ml Btl OS 11/08/24 05:59 DIRECTED DOUG Miscellaneous Medication 0 ml 10/09/24 06:00 Tropicam./Phenyleph. (1/2.5%) 5 Ml Btl OS 11/08/24 05:59 DIRECTED DOUG Tetracaine HCl 0 ml 10/09/24 06:00 Tetracaine 0.5% 4 Ml Btl OS 11/08/24 05:59 DIRECTED [facility] Active Problems Active Problems: Problem Status Onset Code Nuclear age-related cataract, left eye Acute H25.12 Nuclear age-related cataract, right eye Resolved H25.11 Chronic kidney disease (CKD) stage G3b/A1, moderately decreased glomerular filtration rate (GFR) between 30-44 mL/min/1.73 square meter and albuminuria creatinine ratio less than 30 mg/g Acute N18.32 Neoplasm of unspecified behavior of bone, soft tissue, and skin Acute D49.2 Tendinitis of left hip flexor Acute ~03/2024 M76.892 Osteoarthritis of left hip Acute ~03/2024 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 K13.21 Chronic sinusitis Acute J32.9 Viral conjunctivitis of both eyes Acute 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 L66.1 Abdominal discomfort in right lower quadrant Acute R10.31 Other chronic pain Acute ~02/2022 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) Acute I25.10 Antinuclear antibody (GLENN) titer greater than 1:80 Acute ~12/2021 R76.0 S/P CABG x [address] Z[address] elevation myocardial infarction (STEMI) Acute I25.2 Non-healing wound of right lower extremity Acute S81.801A S/P CABG x 4 Acute Z95.1 Laceration Acute Chronic left hip pain Acute M25.552, G89.29 Hand pain Acute M79.643 Abnormal electrocardiogram [ECG] [EKG] Acute R94.31 CKD (chronic kidney disease) Acute N18.9 Hyperlipemia Chronic E78.5 History of tobacco use Acute Z87.891 Essential hypertension Chronic 12/05/16 I10 Medical History Medical History Basal cell carcinoma (BCC) of left cheek (~07/2024) 08/18/24 Mohs procedure at Actinic keratitis (~06/2022) 07/11/22 Several areas on face - LN treatment at this visit 12/31/23 f/u with Derm 07/13/24 F/u Derm Viral wart, unspecified 07/11/22 [facility] , LN to area on scalp H/O squamous cell carcinoma H/O melanoma in situ 07/11/22 [facility] 07/13/24 F/U [facility] D[facility] ST elevation (STEMI) myocardial infarction of unspecified site (09/2021) F/U with cardiology last seen 04/02/24 Right shoulder pain Colonic polyp (08/06/08) hyperplastic HTN (hypertension) Surgical History Surgical History History of carpal tunnel surgery (~2018) right Status post right hip replacement (~2019) Replacement of total knee joint (~2016) B/L Colonoscopy - MAC (09/16/17) Tobacco Smoking/Tobacco Use Status: Former Tobacco Use Passive smoking exposure: No Second hand exposure: No Alcohol Alcohol Intake: current Alcohol intake frequency: holidays/special occasions only Alcohol type: wine Substance Use Substance use: Never Substance use type: former substance user and marijuana Prental History History 3 Para 3 Hx # Term Pregnancies 3 Multiple births Hx # Pregnancies Ectopic pregnancies AB induced Hx Number of Living Children 3 AB spontaneous Vital Signs and Lab Results Vital Signs Most Recent Vital Signs in EMR: Most Recent Vital Signs Temp Pulse Resp BP Pulse Ox 36.6 C 75 18 154/88 H 98 10/09/24 10:29 10/09/24 10:29 10/09/24 10:29 10/09/24 10:29 10/09/24 10:29 Imaging and Studies Imaging and Studies Study information below may be from another EMR and interpreted by another provider. Please see original notes in EMR for more complete details. EKG Summary: 09/15/24: Exam: Resting ECG Reason for Exam: Pre Op Exam Patient Location: O HR:81 bpm ECG Measurements Heart Rate 81 AXIS LA 171 P 32 QRSd 100 QRS 62 QT 392 T21 QTc 455 Conclusion Sinus rhythm...normal P axis, V-rate 50- 99 Multiple ventricular premature complexes...V complexes w/ short R-R intervls Otherwise normal ECG Anesthesia Assessment and Plan Anesthesia History Personal History: No History of Anesthesia Complications Family History: No Family History of Anesthesia Complications Exercise Tolerance Exercise Tolerance: Metabolic Equivalents>4 Pertinent Negatives Pertinent Negatives: No Symptoms of GERD Cardiac & Pulmonary Exam Cardiac Exam: Normal S1/S2 Heart Sounds Pulmonary Exam: Clear Bilateral Breath Sounds Implantable Cardiac Device Does patient have a Pacemaker or an ICD?: No Airway Exam Known Difficult Airway: No Mallampati Class: 1 Mouth Opening: Normal (> 3cm) Thyromental Distance: Greater than 3 cm Neck Range of Motion: Full ROM Neck Circumference: Normal Teeth Condition: Normal Dentition ASA Classification ASA Score: ASA 3 Emergency Case?: No NPO Status NPO Status: NPO Clears >2 hours, Solids >8 hours Anesthesia Plan Resuscitation Status: Full Code Anesthesia Technique: MAC Anesthesia Airway Planned: Natural Airway Monitors Used: Standard Monitors
[2024-10-09 10:44] VITALS: BMI 29.5
[2024-10-09] MEDS: Tetracaine 0.5% 4 ML BTL OS (11:41)
[2024-10-09] MEDS: Duovisc Viscoelastic System EACH 1 EACH (11:53)
[2024-10-09] MEDS: Lidocaine 1% Pres-Free 5 ML VIAL (11:54)
[2024-10-09] MEDS: Moxifloxacin-PF 1 MG/ML VIAL (11:55)
[2024-10-09] MEDS: Phenylephrine/Lidocaine (15/10) MG/ML 1 ML VIAL (11:55)
[2024-10-09] MEDS: Povidone-Iodine Ophth 30 ML BTL (11:56)
[2024-10-09] MEDS: Balanced Salt Soln.-PLUS 500 ML BAG OP (11:57)
[2024-10-09] MEDS: Prednisolone 1%, Moxifloxacin 0.5%, Bromfenac 0.09% 5.6ML BTL OS (11:57)
[2024-10-09 12:00] VITALS: BP 130/78; PULSE 75; RESP 16; TEMP 37; O2SAT 98
--- NOTE | 2024-10-09 12:01 | W.PM.DSUDISC ---
Date of service: 10/09/24 Discharge Plan Disposition Patient Disposition: Home Discharge Details Attending Provider: Marko Ferrer Primary Care Provider: Eugenia Medley Home Meds and New Rx's Prescriptions: No Action amlodipine [Norvasc] 5 mg PO DAILY atorvastatin 80 mg tablet See Rx Instructions .ROUTE .COMPLEX Qty: 90 3RF Dose Instruction: TAKE ONE TABLET BY MOUTH AT BEDTIME Rx Instructions: TAKE ONE TABLET BY MOUTH AT BEDTIME olopatadine 0.7 % drops 1 drp ophthalmic (eye) DAILY 30 Days Qty: 5 6RF Rx Instructions: OU losartan 100 mg tablet 100 mg PO DAILY aspirin 81 mg tablet 81 mg PO DAILY clobetasol 0.05 % shampoo 1 applic topical .2-3x/week Qty: 118 3RF fluocinonide 0.05 % solution 1 applic topical BID PRN fluorouracil [Efudex] 5 % cream 1 applic topical BID Rx Instructions: to face as directed duloxetine 30 mg capsule,delayed release(DR/EC) 30 mg PO DAILY Qty: 90 3RF Rx Instructions: Take in addition to the 60mg cap for a total daily dose of 90mg. duloxetine 60 mg capsule,delayed release(DR/EC) 60 mg PO DAILY Qty: 90 3RF Discharge Instructions Stand Alone Forms: DSU Post-Op CataractIrasema (DSU) Discharge Orders Discharge Orders: Discharge Order (Routine); Ordered 10/09/24 Ordered By: Marko Ferrer DS: Diagnosis Discharge Diagnosis (1) Nuclear age-related cataract, left eye: Status: Resolved
--- NOTE | 2024-10-09 12:02 | W.PM.OP ---
Operative Note Operative Note PRE-OP DIAGNOSIS: Nuclear cataract, left eye POST-OP DIAGNOSIS: same PROCEDURE: Cataract extraction using phacoemulsification with intraocular lens implant, left eye SURGEON: Marko Ferrer ANESTHESIA TYPE: Local By Surgeon and MAC Refer to Anesthesia Record PATHOLOGY: none sent COMPLICATIONS: None Patient was transported to: same day Patient's condition: stable Implants: Mango [place] [id number] Indications: Progressive decreased vision due to cataract, left eye Procedure Description: CATARACT SURGERY OPERATIVE REPORT PREOPERATIVE DIAGNOSIS: Nuclear cataract, left eye POSTOPERATIVE DIAGNOSIS: Same OPERATION: Cataract extraction using phacoemulsification with posterior chamber intraocular lens implant, left eye. IOL: IOL Restaurant Maintenance Technician/Model: Mango Clareon [id number] IOL Power: + 18.0 diopters IOL Serial Number: [id number] Optic Diameter: 6.0mm Haptic/Overall Diameter: 13.0mm PHACO INFO: Mango SpreadShouturion Vision System with OZil and Active Fluidics Cumulative Dispersed Energy (CDE): 8.6 seconds SURGEON: Marko Ferrer MD, KHADRA ANESTHESIA: Monitored Anesthesia Care (MAC), with local sub-tenon's anesthetic infiltration COMPLICATIONS: None SPECIMENS: None INDICATIONS FOR PROCEDURE: The patient is a 78-year-old lady with history of diminished visual acuity in both eyes secondary to the development of bilateral nuclear cataracts. The option of cataract surgery was after the patient and she wished to proceed. She desired a postoperative refractive target for myopia, -3.0 diopters. She has already undergone cataract surgery in the right eye and is doing well postoperatively. She now presents for cataract surgery in the left eye. See office notes for detailed information. PROCEDURE: The correct surgical eye was identified and marked as the left eye and the pupil was dilated in the preoperative area using mydriatics and cycloplegics. The dilated pupil size was 7.0 mm. Oral sedation was administered in the form of an Imprimis MKO Melt (midazolam 3mg/ketamine 25mg/ondansetron 2mg). The patient was brought to the operating room where cardiopulmonary monitoring was instituted and surgical time-out was performed, confirming the correct operative eye and IOL power. Topical anesthesia was administered and ophthalmic povidone-iodine 5% was instilled into the conjunctival fornices. The sho-ocular area was prepped with Betadine 10% solution and draped in the usual sterile fashion for intraocular surgery, including an aperture drape. A Tegaderm transparent film dressing was cut in half and used to cover the lashes and lid margins. Care was taken to sequester the lashes and lid margins under the Tegaderm dressing. A lid speculum was placed between the lids of the operative eye and the Mango LuxOR Revalia operating microscope was maneuvered into position. Zoya scissors were then used to make a conjunctival buttonhole approximately 6mm posterior to the limbus in the inferonasal quadrant. Blunt dissection was carried out to expose bare sclera, and a blunt-tipped sub-tenon?s anesthesia cannula was introduced and passed posteriorly along the globe where non-preserved plain lidocaine was injected into posterior sub-Tenon?s space. A sideport knife was used to make a paracentesis port. Intraocular phenylephrine/lidocaine was injected into the anterior chamber. The anterior chamber was then filled with viscoelastic. A keratome knife was used construct a two-plane clear corneal tunnel extending 2.0mm into clear cornea. A flap was raised on the anterior capsule and capsulorhexis forceps were used to complete a continuous curvilinear capsulorhexis of 5.5 mm. Balanced salt solution was then used to perform cortical cleaving hydrodissection and nuclear hydrodelineation until the lens could be freely rotated within the capsular bag. The lens nucleus was then disassembled and removed within the capsular bag and iris plane using phacoemulsification. Residual cortical material was removed using the irrigation/aspiration handpiece. The posterior capsule was carefully polished to remove as much residual lens epithelial cells as safely possible. The capsular bag was then inflated and the anterior chamber deepened with viscoelastic. The lens implant described above was inserted into the capsular bag using the Mango Autonome Injector. A Kuglen hook was used to dial the IOL into position. Residual viscoelastic was then removed first from posterior to the IOL, then from the anterior chamber using the I/A handpiece. The lens implant was noted to center nicely within the capsular bag. The incisions were stromally hydrated, and the anterior chamber was reformed using BSS. Then 0.5cc of moxifloxacin 1.0mg/ml were injected into the capsular bag and anterior chamber. The incisions were checked with a Weck spear and found to be secure. Several drops of ophthalmic povidone-iodine 5% were then applied to the eye followed by two drops of combination steroid/NSAID/antibiotic solution. The drapes were removed and a clear plastic protective eye shield was placed over the eye. The patient was then returned to Same Day Surgery in stable condition. Date of Procedure: 10/09/24
--- NOTE | 2024-10-09 12:17 | W.ANESPOSTOP ---
Postoperative Evaluation Date, Time and Location Date Performed: 10/09/24 Time Performed: 12:17 Patient Location: Day Surgery Unit Vital Signs Most Recent Imported Vital Signs: Most Recent Vital Signs Temp Pulse Resp BP Pulse Ox 37 C 75 16 130/78 98 10/09/24 12:00 10/09/24 12:00 10/09/24 12:00 10/09/24 12:00 10/09/24 12:00 Pain Score Most Recent Pain Score: Most Recent Pain Score Pain Level 0 10/09/24 12:00 Assessment Mental Status: Awake (Alert & Oriented to Patient Baseline) Airway and Respiratory Function: Patent airway with normal (patient baseline) respiratory exam Cardiovascular Function: Hemodynamically Stable Hydration Status: Adequately Hydrated Nausea & Vomiting: No Nausea or Vomiting Pain: Pt. Denies Any Pain Peripheral Nerve Block: Patient did not receive a nerve block
[2024-10-09 12:19] VITALS: BP 131/73; PULSE 79; RESP 16; TEMP 36.2; O2SAT 96
== END 2024-10-09 12:34 | disposition home or self-care (01) ==
LOC: SUR 10:20
PROVIDERS: PCP Nurse Practitioner; Visit Provider Ophthalmology
PROC: (CPT 66984; principal; 2024-10-09 13:30)
DX: H25.12 Age-related nuclear cataract, left eye (principal); Z98.41 Cataract extraction status, right eye
CPT/HCPCS: 66984; 00123; V2632; J2003

== ENCOUNTER 2024-10-22 14:00 | Outpatient (RCR) | payer SELFPAY ==
[2024-09-22 16:06] VITALS: BP 129/68; PULSE 87
[2024-09-24 14:34] VITALS: BP 147/72; PULSE 82; O2SAT 94
[2024-10-01 14:38] VITALS: BP 137/77; PULSE 90
[2024-10-08 14:15] VITALS: BP 116/67; PULSE 81; O2SAT 96
[2024-10-20 14:52] VITALS: BP 148/75; PULSE 92
[2024-10-22 14:21] VITALS: BP 150/72; PULSE 71
== END 2024-10-22 23:59 | disposition home or self-care (01) ==
LOC: CR 14:00
PROVIDERS: PCP Nurse Practitioner; Visit Provider Internal Medicine Cardiovascular Disease
DX: R69 Illness, unspecified (principal)

== ENCOUNTER 2024-11-17 14:00 | Outpatient (RCR) | payer SELFPAY ==
[2024-10-23 00:24] VITALS: BP 150/72; PULSE 71
[2024-10-27 14:20] VITALS: BP 151/82; PULSE 78
[2024-11-03 14:00] VITALS: BP 128/75; PULSE 87
[2024-11-17 14:29] VITALS: BP 150/79; PULSE 75
== END 2024-11-22 23:59 | disposition home or self-care (01) ==
LOC: CR 14:00
PROVIDERS: PCP Nurse Practitioner; Visit Provider Internal Medicine Cardiovascular Disease
DX: R69 Illness, unspecified (principal)

== ENCOUNTER 2024-12-15 04:53 | Outpatient (CLI) | payer MEDICARE, SELFPAY ==
--- NOTE | 2024-12-15 11:15 | DI.US_ITS ---
Exam(s) US LOWER EXTREMITY VENOUS RT EXAM: US LOWER EXTREMITY VENOUS RT CLINICAL HISTORY: leg swelling,? dvt,m79.89. TECHNIQUE: Lower extremity venous ultrasound performed using grayscale, color- flow, and spectral Doppler analysis. COMPARISON: No exams were available for comparison FINDINGS: The common femoral, femoral and popliteal veins demonstrate normal compressibility, augmentation, and color Doppler. The posterior tibial and peroneal veins are patent. No saphenous vein thrombosis or other superficial venous thrombosis is seen. No hematoma or Wing's cyst is seen. Mild lower leg edema. IMPRESSION: Mild lower leg edema. No evidence of DVT. DATA REPOSITORY:
== END 2024-12-15 05:13 ==
LOC: DI 12-16 04:54
PROVIDERS: PCP Nurse Practitioner; Visit Provider Nurse Practitioner Family
DX: M79.89 Other specified soft tissue disorders (principal)
CPT/HCPCS: 93971

== ENCOUNTER 2024-12-16 15:17 | Outpatient (CLI) | payer MEDICARE, SELFPAY ==
[2024-12-21 10:46] LABS: Factor V Leiden(R506Q) Mut Heterozygous (Negative)
== END 2024-12-16 15:18 | disposition home or self-care (01) ==
LOC: LBO 15:17
PROVIDERS: PCP Nurse Practitioner; Visit Provider Nurse Practitioner Family
DX: M79.89 Other specified soft tissue disorders (principal); Z83.2 Family history of diseases of the blood and blood-forming organs and certain disorders involving the immune mechanism
CPT/HCPCS: 36415; 81241

== ENCOUNTER 2024-12-23 11:43 | Outpatient (CLI) | payer MEDICARE, SELFPAY ==
[2024-12-23 12:13] LABS: HCT 37.7 % (36.0-46.0); HGB 12.2 g/dL (11.2-15.7); MCH 28.0 pg (27.0-33.0); MCHC 32.4 % (32.0-36.0); MCV 87 fL (80-95); MPV 9.9 fL (8.0-11.0); Platelet Count 231 10^3/uL (130-400); RBC 4.35 10^6/uL (3.93-5.22); RDW 14.6 % (11.7-14.6); RDW-SD 46.5 fL; WBC 6.09 10^3/uL (4.4-10.8)
[2024-12-23 13:10] LABS: Anion Gap 8.1 mmol/L (3-11); BUN 23 mg/dL (7-18); CO2 26.9 mmol/L (21.0-32.0); Calcium 9.2 mg/dL (8.5-10.1); Calculated LDL 70 mg/dL (<100); Chloride 105 mmol/L (98-107); Cholesterol 141 mg/dL (<200); Estimated GFR 46.62 (mL/min/1.73m2); Glucose 90 mg/dL (74-106); HDL Cholesterol 52 mg/dL (>or=50); Potassium 4.2 mmol/L (3.5-5.1); Sodium 140 mmol/L (136-145); TSH (W/Ref FT4) 3.51 uIU/mL (0.36-3.74); Triglyceride 96 mg/dL (<150); Vitamin B12 661 pg/mL (193-986)
[2024-12-24 12:25] LABS: Lyme Ab w Rflx to Lyme Confirm Negative (Negative)
[2024-12-25 22:39] LABS: B. miyamotoi PCR Negative (Negative); Babesia divergens/MO-1 Negative (Negative); Ehrlichia muris eauclairensis Negative (Negative)
== END 2024-12-23 11:44 | disposition home or self-care (01) ==
LOC: LBO 11:44
PROVIDERS: PCP Nurse Practitioner; Visit Provider Nurse Practitioner Family
DX: R53.83 Other fatigue (principal); N18.32 Chronic kidney disease, stage 3b
CPT/HCPCS: 36415; 80048; 80061; 85027; 87798; 82607; 83036; 84443; 86618

== ENCOUNTER 2025-01-13 01:25 | Outpatient (CLI) | payer MEDICARE, SELFPAY ==
--- NOTE | 2025-01-13 07:00 | DI.MRI_ITS ---
Exam(s) MR BRAIN WO EXAM: MR BRAIN WO CLINICAL HISTORY: balance changes,GAIT ABNORMALITY,R26.9 TECHNIQUE: Multiplanar multisequence MRI of the brain was performed. COMPARISON: No exams were available for comparison FINDINGS: The examination is limited due to patient motion artifact. VENTRICLES AND EXTRA AXIAL SPACES: The ventricles and sulci are consistent with each other and consistent with the patient's age. MIDLINE SHIFT: None. CEREBRAL PARENCHYMA: No focus of restricted diffusion to suggest acute infarct. No space-occupying lesion identified. There are areas of hyperintense signal seen in the white matter consistent with chronic microvascular ischemic disease. HEMORRHAGE: None. BRAINSTEM/CEREBELLUM: Normal. CALVARIUM: Normal. VISUALIZED PARANASAL SINUSES/MASTOIDS:Clear. RINCON OF AGUAYO: Normal flow void. PITUITARY GLAND: Unremarkable. OTHER FINDINGS: None. IMPRESSION: 1. The examination is limited due to patient motion artifact. 2. No evidence of an intracranial mass or acute infarct. 3. The ventricles and sulci are consistent with the patient's age. 4. Chronic microvascular ischemic disease. DATA REPOSITORY:
== END 2025-01-13 01:45 ==
PROVIDERS: PCP Nurse Practitioner Family; Visit Provider Family Medicine
DX: I67.82 Cerebral ischemia (principal)
CPT/HCPCS: 70551